=== PATIENT | male | born 1935 | race African-American/Black ===

== ENCOUNTER 2017-08-16 16:11 | Inpatient (IN) | payer MEDICARE, MEDICAID ==
[~2017-08-16] VITALS: Ht 172.7 cm; Wt 97.5 kg
[~2017-08-16 16:11] MED LIST: ACET1TAB14 PO; CALC667C4 PO; COR6 PO; NIFE90TA2 PO
[2017-08-16 20:26] LABS: HEMATOCRIT. 38.1 % (42.0-52.0); HEMOGLOBIN. 13.2 g/dL (14.0-18.0); INR 1.1; MEAN CORPUSCULAR HEMOGLOBIN 30.7 pg (28.0-32.0); MEAN CORPUSCULAR VOLUME 88.9 fL (80.0-94.0); MEAN PLATELET VOLUME 9.6 fl (7.4-10.4); PLATELET 131 x1000/uL (130-400); PROTHROMBIN TIME 11.9 sec (9.4-11.6); RED BLOOD CELL COUNT 4.28 mill/uL (4.7-6.1); RED CELL DISTRIBUTION WIDTH 15.2 % (11.6-14.6)
[2017-08-16 20:32] LABS: CARBON DIOXIDE 31 mEq/L (21-32); CHLORIDE 93 mEq/L (98-107)
[2017-08-16 20:39] LABS: CREATINE KINASE 85 IU/L (39-308); ETHANOL BLOOD < 10 mg/dL; TROPONIN I 0.17 ng/mL (0.00-0.04)
[2017-08-16 20:48] LABS: PLATELET ESTIMATE NORMAL
[2017-08-16] MEDS ORDERED: ONDANSETRON HCL 4MG/2ML VIAL IV ONE (21:15)
[2017-08-16] MEDS ORDERED: MORPHINE SULFATE 4 MG/ML CPJ (NOT FOR IM USE) IV ONE (21:15)
[2017-08-17] MEDS ORDERED: CLONIDINE 0.1MG TABLET PO PRN (08:45)
[2017-08-17] MEDS ORDERED: IPRATROPIUM/ALBUTEROL 0.5-3(2.5)MG/3ML NEB INH PRN (08:45)
[2017-08-17] MEDS ORDERED: ACETAMINOPHEN 650MG/20.3ML UDC GT PRN (08:45)
[2017-08-17] MEDS ORDERED: ACETAMINOPHEN 650MG SUPP PR PRN (08:45)
[2017-08-17] MEDS ORDERED: MAGNESIUM/ALUMINUM HYDROXIDE/SIMETHICONE 30ML UDC PO PRN (08:45)
[2017-08-17] MEDS ORDERED: MORPHINE SULFATE 4 MG/ML CPJ (NOT FOR IM USE) IV PRN (08:45)
[2017-08-17] MEDS ORDERED: NA PHOS,M-B/NA PHOS,DI-BA ENEMA 118ML PR PRN (08:45)
[2017-08-17] MEDS ORDERED: HYDROCODONE/ACETAMINOPHEN 5/325MG TABLET PO PRN (08:45)
[2017-08-17] MEDS ORDERED: ACETAMINOPHEN 325MG TABLET PO PRN (08:45)
[2017-08-17] MEDS ORDERED: GUAIFENESIN 200MG/10ML SUGAR FREE UDC PO PRN (08:45)
[2017-08-17] MEDS ORDERED: ONDANSETRON HCL 4MG/2ML VIAL IV PRN (08:45)
[2017-08-17] MEDS ORDERED: DIPHENHYDRAMINE 50MG/ML VIAL IV PRN (08:45)
[2017-08-17 09:21] LABS: HEMATOCRIT. 37.7 % (42.0-52.0); HEMOGLOBIN. 12.6 g/dL (14.0-18.0); MEAN CORPUSCULAR HEMOGLOBIN 29.8 pg (28.0-32.0); MEAN CORPUSCULAR VOLUME 89.7 fL (80.0-94.0); MEAN PLATELET VOLUME 8.7 fl (7.4-10.4); PLATELET 135 x1000/uL (130-400); RED BLOOD CELL COUNT 4.21 mill/uL (4.7-6.1); RED CELL DISTRIBUTION WIDTH 15.2 % (11.6-14.6)
[2017-08-17 09:27] LABS: CHLORIDE 94 mEq/L (98-107)
[2017-08-17 09:38] LABS: CARBON DIOXIDE 31 mEq/L (21-32)
[2017-08-17 10:15] LABS: PLATELET ESTIMATE NORMAL
[2017-08-17 12:45] VITALS: BP 125/65
[2017-08-17] MEDS: CELECOXIB 100MG CAPSULE PO SCH ×2 (14:07→19:06)
[2017-08-17] MEDS: SODIUM CHLORIDE 0.9% INJ 3ML FLUSH IVF SCH ×2 (14:10→20:51)
[2017-08-17 15:22] VITALS: BP 125/65
[2017-08-17 16:56] VITALS: BP 111/61
[2017-08-17 20:00] VITALS: BP 129/73
[2017-08-17] MEDS: FAMOTIDINE 20MG TABLET PO SCH (20:48)
[2017-08-18] VITALS (7 sets, daily range): BP systolic 101–140; BP diastolic 59–88
[2017-08-18 07:28] LABS: HEMATOCRIT. 36.8 % (42.0-52.0); HEMOGLOBIN. 12.3 g/dL (14.0-18.0); MEAN CORPUSCULAR HEMOGLOBIN 30.1 pg (28.0-32.0); MEAN CORPUSCULAR VOLUME 90.4 fL (80.0-94.0); MEAN PLATELET VOLUME 9.2 fl (7.4-10.4); PLATELET 147 x1000/uL (130-400); RED BLOOD CELL COUNT 4.07 mill/uL (4.7-6.1); RED CELL DISTRIBUTION WIDTH 15.3 % (11.6-14.6)
[2017-08-18] MEDS: CELECOXIB 100MG CAPSULE PO SCH ×2 (08:34→20:39)
[2017-08-18 12:28] LABS: PLATELET ESTIMATE NORMAL
[2017-08-18] MEDS: SODIUM CHLORIDE 0.9% INJ 3ML FLUSH IVF SCH ×2 (13:32→20:39)
[2017-08-18] MEDS: FAMOTIDINE 20MG TABLET PO SCH (20:39)
[2017-08-19] VITALS: BP 117/69
== END 2017-08-19 00:55 | DRG 551 ==
LOC: ER 16:23 → 6WST 08-17 01:01 → EDBEDREQ 08-17 01:06 → EDBEDREQTM 08-17 01:06 → ENRESERV 08-17 08:13
PROVIDERS: ADMIT Family Medicine; ATTEND Family Medicine
DX: M48.05 Spinal stenosis, thoracolumbar region (principal); N18.6 End stage renal disease; I13.2 Hypertensive heart and chronic kidney disease with heart failure and with stage 5 chronic kidney disease, or end stage renal disease; I69.351 Hemiplegia and hemiparesis following cerebral infarction affecting right dominant side; D63.8 Anemia in other chronic diseases classified elsewhere; I25.10 Atherosclerotic heart disease of native coronary artery without angina pectoris; I50.9 Heart failure, unspecified; Z99.2 Dependence on renal dialysis; Z86.718 Personal history of other venous thrombosis and embolism; Z79.899 Other long term (current) drug therapy; Z95.5 Presence of coronary angioplasty implant and graft
CPT/HCPCS: 36415; 70450; 71010; 72128; 72131; 73560; 80048; 80053; 82550; 83880; 84443; 84484; 85025; 85610; 93005; 96374; 96375; 97162; 97166; 97530; 99285; G0482; J1200; J2270; J2405

== ENCOUNTER 2017-08-19 01:16 | Inpatient (IN) | payer MEDICARE, MEDICAID ==
[~2017-08-19] VITALS: Ht 172.7 cm; Wt 97.5 kg
[2017-08-19 01:00] VITALS: BP 140/81
[2017-08-19 01:30] VITALS: BP 140/81
[2017-08-19] MEDS ORDERED: HYDROCODONE/ACETAMINOPHEN 5/325MG TABLET PO PRN (01:30)
[2017-08-19] MEDS ORDERED: ACETAMINOPHEN 650MG/20.3ML UDC PO PRN (01:30)
[2017-08-19] MEDS ORDERED: NA PHOS,M-B/NA PHOS,DI-BA ENEMA 118ML PR PRN (01:30)
[2017-08-19] MEDS ORDERED: ONDANSETRON HCL 4MG/2ML VIAL IV PRN (01:30)
[2017-08-19] MEDS ORDERED: DIPHENHYDRAMINE 50MG/ML VIAL IV PRN (01:30)
[2017-08-19] MEDS ORDERED: ACETAMINOPHEN 325MG TABLET PO PRN (01:30)
[2017-08-19] MEDS ORDERED: ACETAMINOPHEN 650MG SUPP PR PRN (01:30)
[2017-08-19] MEDS ORDERED: GUAIFENESIN 200MG/10ML SUGAR FREE UDC PO PRN (01:30)
[2017-08-19] MEDS ORDERED: MORPHINE SULFATE 2 MG/ML CPJ (NOT FOR IM USE) IV PRN (01:30)
[2017-08-19] MEDS ORDERED: MAGNESIUM/ALUMINUM HYDROXIDE/SIMETHICONE 30ML UDC PO PRN (01:30)
[2017-08-19] MEDS: SODIUM CHLORIDE 0.9% INJ 3ML FLUSH IVF SCH ×3 (06:20→21:26)
[2017-08-19 08:00] VITALS: BP 148/84
[2017-08-19] MEDS: CELECOXIB 100MG CAPSULE PO SCH ×2 (08:30→17:22)
[2017-08-19 20:00] VITALS: BP 159/82
[2017-08-19] MEDS: FAMOTIDINE 20MG TABLET PO SCH (20:38)
[2017-08-20] MEDS: SODIUM CHLORIDE 0.9% INJ 3ML FLUSH IVF SCH ×3 (05:26→21:38)
[2017-08-20 08:00] VITALS: BP 139/86
[2017-08-20] MEDS: CELECOXIB 100MG CAPSULE PO SCH ×2 (08:02→16:06)
[2017-08-20 20:00] VITALS: BP 165/93
[2017-08-20] MEDS: FAMOTIDINE 20MG TABLET PO SCH (20:15)
[2017-08-20] MEDS: CLONIDINE 0.1MG TABLET PO PRN (20:15)
[2017-08-20 21:38] VITALS: BP 150/84
[2017-08-20] MEDS: ZOLPIDEM TARTRATE 5MG TABLET PO PRN (21:38)
[2017-08-21] MEDS: SODIUM CHLORIDE 0.9% INJ 3ML FLUSH IVF SCH ×3 (06:00→22:00)
[2017-08-21 07:00] VITALS: BP 158/87
[2017-08-21] MEDS: CELECOXIB 100MG CAPSULE PO SCH ×2 (08:41→16:44)
[2017-08-21] MEDS: IPRATROPIUM/ALBUTEROL 0.5-3(2.5)MG/3ML NEB HHN PRN (15:26)
[2017-08-21 19:00] VITALS: BP 121/71
[2017-08-21] MEDS: FAMOTIDINE 20MG TABLET PO SCH (22:09)
[2017-08-21] MEDS: ZOLPIDEM TARTRATE 5MG TABLET PO PRN (22:45)
[2017-08-21] MEDS: CLONIDINE 0.1MG TABLET PO PRN (22:45)
[2017-08-22] MEDS: SODIUM CHLORIDE 0.9% INJ 3ML FLUSH IVF SCH ×3 (06:00→21:34)
[2017-08-22 08:00] VITALS: BP 113/82
[2017-08-22] MEDS: CELECOXIB 100MG CAPSULE PO SCH ×2 (09:14→18:11)
[2017-08-22] MEDS: IPRATROPIUM/ALBUTEROL 0.5-3(2.5)MG/3ML NEB HHN PRN ×2 (15:45→22:13)
[2017-08-22 20:00] VITALS: BP 121/75
[2017-08-22] MEDS: FAMOTIDINE 20MG TABLET PO SCH (21:34)
[2017-08-23] MEDS: ZOLPIDEM TARTRATE 5MG TABLET PO PRN (00:42)
[2017-08-23] MEDS: IPRATROPIUM/ALBUTEROL 0.5-3(2.5)MG/3ML NEB HHN PRN ×2 (05:05→14:25)
[2017-08-23] MEDS: SODIUM CHLORIDE 0.9% INJ 3ML FLUSH IVF SCH ×3 (06:00→22:00)
[2017-08-23 06:23] LABS: BASOPHILS % 0.5 % (0.0-2.0); EOSINOPHILS % 5.3 % (0.0-5.0); HEMATOCRIT. 32.3 % (42.0-52.0); HEMOGLOBIN. 10.9 g/dL (14.0-18.0); LYMPHOCYTES % 19.6 % (20.0-50.0); MEAN CORPUSCULAR HEMOGLOBIN 30.1 pg (28.0-32.0); MEAN CORPUSCULAR VOLUME 89.1 fL (80.0-94.0); MEAN PLATELET VOLUME 8.4 fl (7.4-10.4); MONOCYTES % 13.5 % (2.0-8.0); NEUTROPHILS % 61.1 % (40.0-76.0); PLATELET 179 x1000/uL (130-400); RED BLOOD CELL COUNT 3.62 mill/uL (4.7-6.1); RED CELL DISTRIBUTION WIDTH 15.2 % (11.6-14.6)
[2017-08-23 08:00] VITALS: BP 150/87
[2017-08-23] MEDS: CELECOXIB 100MG CAPSULE PO SCH ×2 (09:51→17:59)
[2017-08-23 20:00] VITALS: BP 149/84
[2017-08-23] MEDS: FAMOTIDINE 20MG TABLET PO SCH (20:47)
[2017-08-23] MEDS: BUDESONIDE 0.5MG/2ML NEB HHN SCH (21:44)
[2017-08-23] MEDS: IPRATROPIUM/ALBUTEROL 0.5-3(2.5)MG/3ML NEB HHN SCH (21:45)
[2017-08-24] MEDS: ZOLPIDEM TARTRATE 5MG TABLET PO PRN ×2 (00:58→23:28)
[2017-08-24] MEDS: SODIUM CHLORIDE 0.9% INJ 3ML FLUSH IVF SCH ×4 (06:00→21:33)
[2017-08-24] MEDS: BUDESONIDE 0.5MG/2ML NEB HHN SCH ×2 (07:53→21:09)
[2017-08-24] MEDS: IPRATROPIUM/ALBUTEROL 0.5-3(2.5)MG/3ML NEB HHN SCH ×3 (07:56→21:09)
[2017-08-24 07:57] VITALS: BP 146/87
[2017-08-24] MEDS: CELECOXIB 100MG CAPSULE PO SCH ×2 (08:29→17:07)
[2017-08-24 20:00] VITALS: BP 153/84
[2017-08-24] MEDS: FAMOTIDINE 20MG TABLET PO SCH (21:25)
[2017-08-25] MEDS: IPRATROPIUM/ALBUTEROL 0.5-3(2.5)MG/3ML NEB HHN SCH ×4 (00:57→20:22)
[2017-08-25 08:00] VITALS: BP 143/75
[2017-08-25] MEDS: CELECOXIB 100MG CAPSULE PO SCH ×2 (09:10→16:05)
[2017-08-25] MEDS: SODIUM CHLORIDE 0.9% INJ 3ML FLUSH IVF SCH ×2 (13:48→21:23)
[2017-08-25 20:00] VITALS: BP 156/88
[2017-08-25] MEDS: BUDESONIDE 0.5MG/2ML NEB HHN SCH (20:22)
[2017-08-25 22:30] VITALS: BP 114/58
[2017-08-25] MEDS: FAMOTIDINE 20MG TABLET PO SCH (23:29)
[2017-08-26] MEDS: ZOLPIDEM TARTRATE 5MG TABLET PO PRN (00:19)
[2017-08-26] MEDS: IPRATROPIUM/ALBUTEROL 0.5-3(2.5)MG/3ML NEB HHN SCH ×2 (01:33→09:04)
[2017-08-26] MEDS: SODIUM CHLORIDE 0.9% INJ 3ML FLUSH IVF SCH (06:00)
[2017-08-26 07:00] VITALS: BP 148/84
[2017-08-26] MEDS: CELECOXIB 100MG CAPSULE PO SCH (08:17)
[2017-08-26] MEDS: BUDESONIDE 0.5MG/2ML NEB HHN SCH (09:02)
[2017-08-26 12:38] VITALS: BP 158/90
[2017-08-26 12:46] VITALS: BP 158/90
== END 2017-08-26 14:00 | disposition home health service (06) | DRG 551 ==
PROVIDERS: ADMIT Psychiatry & Neurology Neurology; ATTEND Family Medicine
DX: M48.04 Spinal stenosis, thoracic region (principal); N18.6 End stage renal disease; I13.2 Hypertensive heart and chronic kidney disease with heart failure and with stage 5 chronic kidney disease, or end stage renal disease; G62.9 Polyneuropathy, unspecified; I69.351 Hemiplegia and hemiparesis following cerebral infarction affecting right dominant side; B02.29 Other postherpetic nervous system involvement; J44.9 Chronic obstructive pulmonary disease, unspecified; D63.8 Anemia in other chronic diseases classified elsewhere; I50.9 Heart failure, unspecified; E03.9 Hypothyroidism, unspecified; I25.10 Atherosclerotic heart disease of native coronary artery without angina pectoris; M81.0 Age-related osteoporosis without current pathological fracture; L29.8 Other pruritus; M17.10 Unilateral primary osteoarthritis, unspecified knee; M47.894 Other spondylosis, thoracic region; K59.00 Constipation, unspecified; Z82.3 Family history of stroke; Z82.49 Family history of ischemic heart disease and other diseases of the circulatory system; Z86.19 Personal history of other infectious and parasitic diseases; Z99.2 Dependence on renal dialysis; Z95.810 Presence of automatic (implantable) cardiac defibrillator; Z95.5 Presence of coronary angioplasty implant and graft; Z86.718 Personal history of other venous thrombosis and embolism; Z79.899 Other long term (current) drug therapy
CPT/HCPCS: 36415; 80048; 85025; 93970; 94640; 94664; 97110; 97116; 97162; 97166; 97530; 97535; J7030; J7620; J7626

== ENCOUNTER → 2017-10-24 | Outpatient (CLI) | payer MEDICARE, MEDICAID | END | disposition home or self-care (01) | LOC: RAD 09:22 | PROVIDERS: ATTEND Internal Medicine Nephrology | DX: M17.0 Bilateral primary osteoarthritis of knee (principal) | CPT/HCPCS: 73560 ==

== ENCOUNTER 2018-04-26 10:37 | Emergency (ER) | payer MEDICARE, MEDICAID ==
[~2018-04-26] VITALS: Ht 198.1 cm; Wt 94.0 kg
[~2018-04-26 10:37] MED LIST changes: -ACET1TAB14 PO; +AMLO5TAB88 PO; +ASPI-1159 PO; +ATOR20TA PO; -CALC667C4 PO; +CALC667T2 PO; -COR6 PO; +DIPH25CA6 PO; +NIFE10CA PO; -NIFE90TA2 PO; +SACU1TAB MT; +SENN-101 PO; +ZOLP10TA2 PO
[2018-04-26 11:01] VITALS: BP 147/101
== END 2018-04-26 12:10 | disposition left against medical advice (07) ==
LOC: ER 11:16
DX: R47.81 Slurred speech (principal); R94.31 Abnormal electrocardiogram [ECG] [EKG]; I12.0 Hypertensive chronic kidney disease with stage 5 chronic kidney disease or end stage renal disease; N18.6 End stage renal disease; Z99.2 Dependence on renal dialysis; Z95.2 Presence of prosthetic heart valve
CPT/HCPCS: 71045; 93005; 99284

== ENCOUNTER 2018-04-28 10:01 | Inpatient (IN) | payer MEDICARE, MEDICAID ==
[~2018-04-28] VITALS: Ht 325.1 cm; Wt 98.4 kg
[2018-04-28 10:40] LABS: BASOPHILS % 0.6 % (0.0-2.0); EOSINOPHILS % 4.6 % (0.0-5.0); HEMOGLOBIN. 9.6 g/dL (14.0-18.0); LYMPHOCYTES % 9.9 % (20.0-50.0); MEAN CORPUSCULAR HEMOGLOBIN 29.4 pg (28.0-32.0); MEAN CORPUSCULAR VOLUME 88.7 fL (80.0-94.0); MEAN PLATELET VOLUME 8.7 fl (7.4-10.4); MONOCYTES % 8.5 % (2.0-8.0); NEUTROPHILS % 76.4 % (40.0-76.0); PLATELET 177 x1000/uL (130-400); RED BLOOD CELL COUNT 3.27 mill/uL (4.7-6.1); RED CELL DISTRIBUTION WIDTH 15.9 % (11.6-14.6)
[2018-04-28 10:41] LABS: BG BASE EXCESS -12.2 mmol/L (-2.0-2.0); BG CARBOXYHEMOGLOBIN 0.1 % (0.5-1.5); BG DEOXYHEMOGLOBIN 8.1 % (0.0-5.0); BG FRACTION INSPIRED OXYGEN 21; BG HCO3 ACT 13.5 mmol/L (22.0-26.0); BG OXYGEN SATURATION 91.9 % (92.0-98.5); BG OXYHEMOGLOBIN 91.8 % (94.0-97.0); BG PCO2 30.6 mmHg (35.0-45.0); BG PH 7.264 (7.350-7.450); BG PO2 79.4 mmHg (75.0-100.0); BG SAMPLE SITE RIGHT BRACHIAL; BG TOTAL HEMOGLOBIN 10.4 g/dL (12.0-18.0); BG VENT MODE ROOM AIR
[2018-04-28 10:47] LABS: CHLORIDE 98 mEq/L (98-107)
[2018-04-28 10:49] LABS: INR 1.2; PARTIAL THROMBOPLASTIN TIME 36.2 sec (23.4-31.0); PROTHROMBIN TIME 12.3 sec (9.4-11.6)
[2018-04-28 11:02] LABS: PHOSPHORUS 9.1 mg/dL (2.5-4.9)
[2018-04-28] MEDS ORDERED: SODIUM BICARBONATE 8.4% 1 MEQ/ML 50ML SYR IV ONE (11:15)
[2018-04-28] MEDS ORDERED: INSULIN REGULAR (HUMULIN R) 300UNITS/3ML IV ONE (11:15)
[2018-04-28] MEDS ORDERED: CALCIUM CHLORIDE 1GM/10ML SYR IV ONE (11:15)
[2018-04-28] MEDS ORDERED: DEXTROSE 50% WATER 50ML SYRINGE IV ONE (11:15)
[2018-04-28] MEDS ORDERED: TRAMADOL 50MG TABLET PO ONE (12:00)
[2018-04-28] MEDS: SEVELAMER CARBONATE 800 MG TABLET PO SCH ×2 (14:00→17:50)
[2018-04-28 14:30] VITALS: BP 151/87
[2018-04-28] MEDS ORDERED: MORPHINE SULFATE 4 MG/ML CPJ (NOT FOR IM USE) IV PRN (15:00)
[2018-04-28] MEDS ORDERED: IPRATROPIUM/ALBUTEROL 0.5-3(2.5)MG/3ML NEB INH PRN (15:00)
[2018-04-28] MEDS ORDERED: ACETAMINOPHEN 650MG SUPP PR PRN (15:00)
[2018-04-28] MEDS ORDERED: ACETAMINOPHEN 325MG TABLET PO PRN (15:00)
[2018-04-28] MEDS ORDERED: ONDANSETRON HCL 4MG/2ML VIAL IV PRN (15:00)
[2018-04-28] MEDS ORDERED: CLONIDINE 0.1MG TABLET PO PRN (15:00)
[2018-04-28] MEDS ORDERED: MAGNESIUM/ALUMINUM HYDROXIDE/SIMETHICONE 30ML UDC PO PRN (15:00)
[2018-04-28] MEDS ORDERED: HYDROCODONE/APAP 7.5/325MG 1 TAB TABLET PO PRN (15:00)
[2018-04-28] MEDS ORDERED: ACETAMINOPHEN 650MG/20.3ML UDC GT PRN (15:00)
[2018-04-28 17:00] VITALS: BP 151/87
[2018-04-28 20:00] VITALS: BP 119/73
[2018-04-28] MEDS ORDERED: EPOETIN ALFA 4000UNITS/ML VIAL SUBCUT SCH (21:00)
[2018-04-28] MEDS: ATORVASTATIN CALCIUM 20MG TABLET PO SCH (21:19)
[2018-04-28] MEDS: SODIUM CHLORIDE 0.9% INJ 3ML FLUSH IVF SCH (21:20)
[2018-04-28 22:13] LABS: CREATINE KINASE MB FRACTION 7.5 ng/mL (0.5-3.6)
[2018-04-28] MEDS: DIPHENHYDRAMINE 50MG/ML VIAL IV PRN (22:25)
[2018-04-28] MEDS: HYDROCODONE/ACETAMINOPHEN 5/325MG TABLET PO PRN (22:25)
[2018-04-29] VITALS: BP 109/51
[2018-04-29 04:00] VITALS: BP 119/74
[2018-04-29] MEDS: HYDROCODONE/ACETAMINOPHEN 5/325MG TABLET PO PRN (04:02)
[2018-04-29] MEDS: SODIUM CHLORIDE 0.9% INJ 3ML FLUSH IVF SCH ×3 (05:53→20:43)
[2018-04-29 07:25] LABS: BASOPHILS % 1.2 % (0.0-2.0); EOSINOPHILS % 8.1 % (0.0-5.0); HEMATOCRIT. 27.7 % (42.0-52.0); HEMOGLOBIN. 9.4 g/dL (14.0-18.0); LYMPHOCYTES % 8.1 % (20.0-50.0); MEAN PLATELET VOLUME 9.4 fl (7.4-10.4); MONOCYTES % 10.4 % (2.0-8.0); NEUTROPHILS % 72.2 % (40.0-76.0); PLATELET 160 x1000/uL (130-400); RED BLOOD CELL COUNT 3.14 mill/uL (4.7-6.1); RED CELL DISTRIBUTION WIDTH 15.9 % (11.6-14.6)
[2018-04-29 08:00] VITALS: BP 112/72
[2018-04-29 08:11] LABS: CHLORIDE 95 mEq/L (98-107)
[2018-04-29 08:39] LABS: LDL CHOLESTEROL 88 mg/dL (5-100)
[2018-04-29 08:40] LABS: CREATINE KINASE 204 IU/L (39-308); HDL CHOLESTEROL 37 mg/dL (40-59)
[2018-04-29] MEDS: AMLODIPINE 5MG TABLET PO SCH (09:45)
[2018-04-29] MEDS: CALCIUM ACETATE 667MG CAPSULE PO SCH ×3 (09:45→17:50)
[2018-04-29] MEDS: SEVELAMER CARBONATE 800 MG TABLET PO SCH ×3 (09:45→17:50)
[2018-04-29] MEDS: ASPIRIN 81MG TABLET PO SCH (09:46)
[2018-04-29 12:00] VITALS: BP 104/51
[2018-04-29] MEDS: DIPHENHYDRAMINE 50MG/ML VIAL IV PRN (15:54)
[2018-04-29 16:00] VITALS: BP 130/83
[2018-04-29 20:11] VITALS: BP 99/40
[2018-04-29] MEDS: ATORVASTATIN CALCIUM 20MG TABLET PO SCH (20:43)
[2018-04-30] VITALS: BP 90/47
[2018-04-30] MEDS: SODIUM CHLORIDE 0.9% INJ 3ML FLUSH IVF SCH ×2 (06:00→14:19)
[2018-04-30 08:00] VITALS: BP 125/74
[2018-04-30] MEDS: CALCIUM ACETATE 667MG CAPSULE PO SCH ×2 (09:09→13:02)
[2018-04-30] MEDS: SEVELAMER CARBONATE 800 MG TABLET PO SCH ×2 (09:09→13:02)
[2018-04-30] MEDS: AMLODIPINE 5MG TABLET PO SCH (09:10)
[2018-04-30] MEDS: ASPIRIN 81MG TABLET PO SCH (09:10)
[2018-04-30] MEDS ORDERED: HYDROCODONE/APAP 7.5/325MG 1 TAB TABLET PO PRN (11:00)
[2018-04-30 12:00] VITALS: BP 117/78
[2018-04-30 15:30] VITALS: BP 117/78
[2018-05-01] MEDS ORDERED: EPOETIN ALFA 10000UNITS/ML VIAL SUBCUT SCH (21:00)
== END 2018-04-30 16:05 | disposition home or self-care (01) | DRG 291 ==
LOC: EDBEDREQ 10:18 → ER 10:39 → 6WST 10:56 → EDBEDREQ 10:59 → ENRESERV 13:02
PROVIDERS: ADMIT Family Medicine; ATTEND Family Medicine
PROC: 5A1D70Z Performance of Urinary Filtration, Intermittent, Less than 6 Hours Per Day (ICD-10-PCS; principal; 2018-04-28)
PROC: 5A1D70Z Performance of Urinary Filtration, Intermittent, Less than 6 Hours Per Day (ICD-10-PCS; 2018-04-29)
PROC: 5A1D70Z Performance of Urinary Filtration, Intermittent, Less than 6 Hours Per Day (ICD-10-PCS; 2018-04-30)
DX: I13.2 Hypertensive heart and chronic kidney disease with heart failure and with stage 5 chronic kidney disease, or end stage renal disease (principal); E43 Unspecified severe protein-calorie malnutrition; N18.6 End stage renal disease; I50.23 Acute on chronic systolic (congestive) heart failure; E87.2 Acidosis; I47.2 Ventricular tachycardia; I69.351 Hemiplegia and hemiparesis following cerebral infarction affecting right dominant side; N17.9 Acute kidney failure, unspecified; E87.5 Hyperkalemia; Z99.2 Dependence on renal dialysis; Z91.15 Patient's noncompliance with renal dialysis; E83.39 Other disorders of phosphorus metabolism; D64.9 Anemia, unspecified; D63.8 Anemia in other chronic diseases classified elsewhere; E11.22 Type 2 diabetes mellitus with diabetic chronic kidney disease; E78.00 Pure hypercholesterolemia, unspecified; E78.5 Hyperlipidemia, unspecified; G25.3 Myoclonus; G89.29 Other chronic pain; M54.9 Dorsalgia, unspecified; I25.10 Atherosclerotic heart disease of native coronary artery without angina pectoris; I35.0 Nonrheumatic aortic (valve) stenosis; I42.0 Dilated cardiomyopathy; M47.9 Spondylosis, unspecified; Z86.718 Personal history of other venous thrombosis and embolism; Z91.19 Patient's noncompliance with other medical treatment and regimen; Z95.5 Presence of coronary angioplasty implant and graft; Z95.810 Presence of automatic (implantable) cardiac defibrillator
CPT/HCPCS: 36415; 36600; 71045; 80048; 80053; 80061; 82375; 82550; 82553; 82805; 83735; 84100; 84484; 85025; 85610; 85730; 93005; J0885; J1200; J1815; J3490; J7030

== ENCOUNTER 2018-05-16 14:06 | Inpatient (IN) | payer MEDICARE, MEDICAID ==
[~2018-05-16] VITALS: Ht 172.7 cm; Wt 93.4 kg
[2018-05-16 16:55] LABS: HEMATOCRIT. 30.3 % (42.0-52.0); HEMOGLOBIN. 9.9 g/dL (14.0-18.0); MEAN CORPUSCULAR HEMOGLOBIN 28.9 pg (28.0-32.0); MEAN CORPUSCULAR VOLUME 88.5 fL (80.0-94.0); MEAN PLATELET VOLUME 8.6 fl (7.4-10.4); PLATELET 223 x1000/uL (130-400); RED BLOOD CELL COUNT 3.42 mill/uL (4.7-6.1); RED CELL DISTRIBUTION WIDTH 16.5 % (11.6-14.6)
[2018-05-16 16:59] LABS: CHLORIDE 96 mEq/L (98-107)
[2018-05-16 17:04] LABS: INR 1.2; PROTHROMBIN TIME 12.7 sec (9.4-11.6)
[2018-05-16 17:31] LABS: PLATELET ESTIMATE NORMAL
[2018-05-16] MEDS ORDERED: VANCOMYCIN 1 G PREMIX 200 ML IV SCH (23:15)
[2018-05-16 23:32] LABS: HEMOGLOBIN. 10.4 g/dL (14.0-18.0); MEAN CORPUSCULAR HEMOGLOBIN 29.1 pg (28.0-32.0); MEAN CORPUSCULAR VOLUME 89.6 fL (80.0-94.0); MEAN PLATELET VOLUME 8.7 fl (7.4-10.4); PLATELET 290 x1000/uL (130-400); RED BLOOD CELL COUNT 3.58 mill/uL (4.7-6.1); RED CELL DISTRIBUTION WIDTH 16.7 % (11.6-14.6)
[2018-05-16 23:35] LABS: CHLORIDE 93 mEq/L (98-107)
[2018-05-16 23:37] LABS: INR 1.2; PROTHROMBIN TIME 12.7 sec (9.4-11.6)
[2018-05-17] MEDS ORDERED: ACETAMINOPHEN 325MG TABLET PO ONE (00:15)
[2018-05-17] MEDS ORDERED: ASPIRIN 325MG EC TABLET PO ONE (00:30)
[2018-05-17 01:29] LABS: PLATELET ESTIMATE NORMAL
[2018-05-17] MEDS ORDERED: ACETAMINOPHEN 325MG TABLET PO PRN (01:45)
[2018-05-17] MEDS ORDERED: PIPERACILLIN/TAZ 3.375G PREMIX 50 ML IV SCH ×2 (01:45→06:30)
[2018-05-17] MEDS ORDERED: ONDANSETRON HCL 4MG/2ML VIAL IV PRN ×2 (01:45→06:30)
[2018-05-17] MEDS ORDERED: GUAIFENESIN 200MG/10ML SUGAR FREE UDC PO PRN ×2 (01:45→06:30)
[2018-05-17] MEDS ORDERED: ENOXAPARIN 40MG/0.4ML SYR SUBCUT SCH ×2 (01:45→06:30)
[2018-05-17] MEDS ORDERED: CLONIDINE 0.1MG TABLET PO PRN ×2 (01:45→06:30)
[2018-05-17] MEDS ORDERED: DOCUSATE SODIUM 100MG CAPSULE PO PRN (01:45)
[2018-05-17 08:00] VITALS: BP 90/52
[2018-05-17] MEDS ORDERED: AMLODIPINE 10MG TABLET PO SCH (09:00)
[2018-05-17] MEDS ORDERED: ASPIRIN 81MG EC TABLET PO SCH (09:00)
[2018-05-17] MEDS: AMLODIPINE 10MG TABLET PO SCH (09:00)
[2018-05-17] MEDS ORDERED: LOPERAMIDE HCL 2MG CAPSULE PO PRN (09:30)
[2018-05-17] MEDS: PIPERACILLIN/TAZ 2.25G PREMIX 50 ML IV SCH ×2 (10:31→15:58)
[2018-05-17] MEDS: ENOXAPARIN 30MG/0.3ML SYR SUBCUT SCH (10:32)
[2018-05-17] MEDS: ASPIRIN 81MG EC TABLET PO SCH (10:32)
[2018-05-17] MEDS ORDERED: VANCOMYCIN 1 G PREMIX 200 ML IV NR (11:00)
[2018-05-17 12:00] VITALS: BP 92/57
[2018-05-17 16:00] VITALS: BP 99/58
[2018-05-17] MEDS: HYDROCODONE/ACETAMINOPHEN 5/325MG TABLET PO PRN (17:55)
[2018-05-17 20:00] VITALS: BP 91/54
[2018-05-17 21:14] VITALS: BP 100/60
[2018-05-17 23:34] VITALS: BP 99/62
[2018-05-18] VITALS: BP 110/62
[2018-05-18] MEDS: PIPERACILLIN/TAZ 2.25G PREMIX 50 ML IV SCH ×3 (00:32→16:00)
[2018-05-18] MEDS: HYDROCODONE/ACETAMINOPHEN 5/325MG TABLET PO PRN ×3 (03:36→21:27)
[2018-05-18 04:00] VITALS: BP 97/61
[2018-05-18 07:23] LABS: HEMATOCRIT. 28.2 % (42.0-52.0); HEMOGLOBIN. 9.2 g/dL (14.0-18.0); MEAN CORPUSCULAR HEMOGLOBIN 28.9 pg (28.0-32.0); MEAN CORPUSCULAR VOLUME 88.4 fL (80.0-94.0); MEAN PLATELET VOLUME 9.2 fl (7.4-10.4); PLATELET 244 x1000/uL (130-400); RED BLOOD CELL COUNT 3.19 mill/uL (4.7-6.1)
[2018-05-18 08:00] VITALS: BP 116/76
[2018-05-18] MEDS: ASPIRIN 81MG EC TABLET PO SCH (08:52)
[2018-05-18] MEDS: AMLODIPINE 10MG TABLET PO SCH (08:52)
[2018-05-18] MEDS: ENOXAPARIN 30MG/0.3ML SYR SUBCUT SCH (08:53)
[2018-05-18 09:33] LABS: PLATELET ESTIMATE NORMAL
[2018-05-18] MEDS: DIPHENHYDRAMINE 25MG CAPSULE PO PRN (10:30)
[2018-05-18 12:00] VITALS: BP 102/68
[2018-05-18 16:00] VITALS: BP 103/47
[2018-05-18] MEDS: SERTRALINE HCL 25MG TABLET PO SCH (17:15)
[2018-05-18 20:00] VITALS: BP 104/64
[2018-05-18] MEDS: ENOXAPARIN 40MG/0.4ML SYR SUBCUT SCH (21:28)
[2018-05-19] VITALS: BP 98/56
[2018-05-19] MEDS: PIPERACILLIN/TAZ 2.25G PREMIX 50 ML IV SCH ×3 (00:10→15:48)
[2018-05-19 04:00] VITALS: BP 122/73
[2018-05-19] MEDS: ASPIRIN 81MG EC TABLET PO SCH (07:43)
[2018-05-19] MEDS: DOCUSATE SODIUM 100MG CAPSULE PO PRN (07:44)
[2018-05-19] MEDS: HYDROCODONE/ACETAMINOPHEN 5/325MG TABLET PO PRN ×4 (07:46→20:12)
[2018-05-19] MEDS: AMLODIPINE 10MG TABLET PO SCH (07:52)
[2018-05-19] MEDS: SERTRALINE HCL 25MG TABLET PO SCH (07:57)
[2018-05-19 08:00] VITALS: BP 111/66
[2018-05-19 08:11] LABS: HEMATOCRIT. 28.1 % (42.0-52.0); MEAN CORPUSCULAR HEMOGLOBIN 28.4 pg (28.0-32.0); MEAN CORPUSCULAR VOLUME 88.6 fL (80.0-94.0); MEAN PLATELET VOLUME 9.2 fl (7.4-10.4); PLATELET 250 x1000/uL (130-400); RED BLOOD CELL COUNT 3.17 mill/uL (4.7-6.1); RED CELL DISTRIBUTION WIDTH 17.6 % (11.6-14.6)
[2018-05-19 08:58] LABS: PLATELET ESTIMATE NORMAL
[2018-05-19 12:00] VITALS: BP 108/62
[2018-05-19] MEDS ORDERED: VANCOMYCIN 1 G PREMIX 200 ML IV SCH (14:00)
[2018-05-19] MEDS: ENOXAPARIN 40MG/0.4ML SYR SUBCUT SCH (15:51)
[2018-05-19 16:00] VITALS: BP 99/59
[2018-05-19 20:00] VITALS: BP 90/50
[2018-05-20] VITALS: BP 95/54
[2018-05-20] MEDS: PIPERACILLIN/TAZ 2.25G PREMIX 50 ML IV SCH ×3 (00:20→16:02)
[2018-05-20] MEDS: HYDROCODONE/ACETAMINOPHEN 5/325MG TABLET PO PRN (00:24)
[2018-05-20 04:00] VITALS: BP 91/64
[2018-05-20] MEDS: ACETAMINOPHEN 325MG TABLET PO PRN ×3 (05:04→21:27)
[2018-05-20] MEDS: DIPHENHYDRAMINE 25MG CAPSULE PO PRN ×2 (05:04→21:26)
[2018-05-20 08:00] VITALS: BP 93/57
[2018-05-20] MEDS: SERTRALINE HCL 25MG TABLET PO SCH (08:28)
[2018-05-20] MEDS: ASPIRIN 81MG EC TABLET PO SCH (08:28)
[2018-05-20] MEDS: AMLODIPINE 10MG TABLET PO SCH (08:33)
[2018-05-20] MEDS: CARVEDILOL 3.125 MG TABLET PO SCH ×2 (10:07→21:00)
[2018-05-20 12:00] VITALS: BP 97/61
[2018-05-20 16:00] VITALS: BP 138/115
[2018-05-20] MEDS: ENOXAPARIN 40MG/0.4ML SYR SUBCUT SCH (16:02)
[2018-05-20 20:00] VITALS: BP 92/50
[2018-05-21] VITALS: BP 94/56
[2018-05-21] MEDS: PIPERACILLIN/TAZ 2.25G PREMIX 50 ML IV SCH ×3 (00:10→17:01)
[2018-05-21 04:00] VITALS: BP 113/58
[2018-05-21 06:28] LABS: HEMATOCRIT. 26.4 % (42.0-52.0); HEMOGLOBIN. 8.6 g/dL (14.0-18.0); MEAN CORPUSCULAR HEMOGLOBIN 29.3 pg (28.0-32.0); MEAN CORPUSCULAR VOLUME 89.8 fL (80.0-94.0); PLATELET 251 x1000/uL (130-400); RED BLOOD CELL COUNT 2.94 mill/uL (4.7-6.1); RED CELL DISTRIBUTION WIDTH 17.1 % (11.6-14.6)
[2018-05-21] MEDS: SERTRALINE HCL 25MG TABLET PO SCH ×2 (09:00→09:29)
[2018-05-21] MEDS: ASPIRIN 81MG EC TABLET PO SCH (09:00)
[2018-05-21] MEDS: CARVEDILOL 3.125 MG TABLET PO SCH ×3 (09:00→22:00)
[2018-05-21] MEDS: ACETAMINOPHEN 325MG TABLET PO PRN (09:30)
[2018-05-21] MEDS: DEXT 5%/0.9% NACL 1,000 ML IV SCH (11:28)
[2018-05-21 12:00] VITALS: BP 86/47
[2018-05-21 13:04] LABS: PLATELET ESTIMATE NORMAL
[2018-05-21 16:00] VITALS: BP 92/44
[2018-05-21] MEDS ORDERED: VANCOMYCIN 1 G PREMIX 200 ML IV SCH (17:00)
[2018-05-21 20:00] VITALS: BP 140/110
[2018-05-22] VITALS (7 sets, daily range): BP systolic 87–106; BP diastolic 44–67
[2018-05-22] MEDS: DEXT 5%/0.9% NACL 1,000 ML IV SCH (00:11)
[2018-05-22] MEDS: PIPERACILLIN/TAZ 2.25G PREMIX 50 ML IV SCH ×3 (00:11→16:11)
[2018-05-22] MEDS: DIPHENHYDRAMINE 25MG CAPSULE PO PRN (02:27)
[2018-05-22 07:02] LABS: HEMOGLOBIN. 9.1 g/dL (14.0-18.0); MEAN CORPUSCULAR VOLUME 88.7 fL (80.0-94.0); MEAN PLATELET VOLUME 9.1 fl (7.4-10.4); PLATELET 273 x1000/uL (130-400); RED BLOOD CELL COUNT 3.15 mill/uL (4.7-6.1); RED CELL DISTRIBUTION WIDTH 16.9 % (11.6-14.6)
[2018-05-22] MEDS: SERTRALINE HCL 25MG TABLET PO SCH (08:34)
[2018-05-22] MEDS: CARVEDILOL 3.125 MG TABLET PO SCH ×2 (08:35→21:00)
[2018-05-22] MEDS: ASPIRIN 81MG EC TABLET PO SCH (08:35)
[2018-05-22 14:37] LABS: PLATELET ESTIMATE NORMAL
[2018-05-22] MEDS: ZOLPIDEM TARTRATE 5MG TABLET PO SCH (21:39)
[2018-05-23 04:00] VITALS: BP 112/60
[2018-05-23 05:39] LABS: HEMATOCRIT. 28.2 % (42.0-52.0); HEMOGLOBIN. 9.2 g/dL (14.0-18.0); MEAN CORPUSCULAR HEMOGLOBIN 28.7 pg (28.0-32.0); MEAN CORPUSCULAR VOLUME 88.3 fL (80.0-94.0); MEAN PLATELET VOLUME 9.2 fl (7.4-10.4); PLATELET 273 x1000/uL (130-400); RED CELL DISTRIBUTION WIDTH 16.8 % (11.6-14.6)
[2018-05-23 08:00] VITALS: BP 101/60
[2018-05-23] MEDS: ASPIRIN 81MG EC TABLET PO SCH (08:46)
[2018-05-23] MEDS: PIPERACILLIN/TAZ 2.25G PREMIX 50 ML IV SCH ×3 (08:46→16:20)
[2018-05-23] MEDS: SERTRALINE HCL 25MG TABLET PO SCH (08:47)
[2018-05-23] MEDS: CARVEDILOL 3.125 MG TABLET PO SCH ×2 (09:00→22:04)
[2018-05-23] MEDS: ACETAMINOPHEN 325MG TABLET PO PRN ×2 (11:32→22:03)
[2018-05-23 12:00] VITALS: BP 103/60
[2018-05-23 13:59] LABS: PLATELET ESTIMATE NORMAL
[2018-05-23 16:00] VITALS: BP 108/61
[2018-05-23 20:00] VITALS: BP 105/61
[2018-05-23 20:29] LABS: CHLORIDE 96 mEq/L (98-107); INR 1.3; PROTHROMBIN TIME 13.3 sec (9.4-11.6)
[2018-05-23] MEDS: ZOLPIDEM TARTRATE 5MG TABLET PO SCH (22:04)
[2018-05-23] MEDS: EPOETIN ALFA 10000UNITS/ML VIAL SUBCUT SCH (22:05)
[2018-05-24] VITALS (8 sets, daily range): BP systolic 90–158; BP diastolic 46–73
[2018-05-24] MEDS: PIPERACILLIN/TAZ 2.25G PREMIX 50 ML IV SCH ×2 (00:17→08:15)
[2018-05-24 07:17] LABS: HEMATOCRIT. 26.9 % (42.0-52.0); HEMOGLOBIN. 8.6 g/dL (14.0-18.0); MEAN CORPUSCULAR HEMOGLOBIN 28.6 pg (28.0-32.0); PLATELET 271 x1000/uL (130-400); RED BLOOD CELL COUNT 3.02 mill/uL (4.7-6.1); RED CELL DISTRIBUTION WIDTH 17.4 % (11.6-14.6)
[2018-05-24] MEDS: SERTRALINE HCL 25MG TABLET PO SCH (09:00)
[2018-05-24] MEDS: CARVEDILOL 3.125 MG TABLET PO SCH ×2 (09:00→20:46)
[2018-05-24] MEDS ORDERED: ROCURONIUM BROMIDE 10MG/ML VIAL 5ML IV ONE (09:16)
[2018-05-24] MEDS ORDERED: MIDAZOLAM HCL 2 MG/2 ML VIAL ONE (09:16)
[2018-05-24] MEDS ORDERED: FENTANYL CITRATE/PF 50MCG/ML 2ML VIAL ONE (09:16)
[2018-05-24] MEDS ORDERED: BACITRACIN 50,000 UNITS/VIAL ONE (09:20)
[2018-05-24] MEDS ORDERED: VANCOMYCIN HCL 500 MG/VIAL ONE (09:20)
[2018-05-24] MEDS ORDERED: NORMAL SALINE 0.9% 10 ML SYR ONE (09:20)
[2018-05-24] MEDS ORDERED: METOCLOPRAMIDE HCL 10MG/2ML VIAL ONE (09:30)
[2018-05-24] MEDS ORDERED: SUCCINYLCHOLINE CHLORIDE 200MG/10ML VIAL IV ONE (09:30)
[2018-05-24] MEDS ORDERED: ONDANSETRON HCL 4MG/2ML VIAL ONE (09:30)
[2018-05-24] MEDS ORDERED: ETOMIDATE 2MG/ML 10ML VIAL IV ONE (09:30)
[2018-05-24 09:32] LABS: PLATELET ESTIMATE NORMAL
[2018-05-24] MEDS ORDERED: EPHEDRINE SULFATE 50MG/ML VIAL ONE ×2 (09:51→10:52)
[2018-05-24] MEDS ORDERED: PHYSOSTIGMINE SALICYLATE ONE (09:51)
[2018-05-24] MEDS ORDERED: FENTANYL CITRATE/PF 50MCG/ML 2ML VIAL IV PRN (10:30)
[2018-05-24] MEDS ORDERED: ONDANSETRON HCL 4MG/2ML VIAL IV PRN (10:30)
[2018-05-24] MEDS ORDERED: MEPERIDINE HCL/PF 25MG/ML CPJ IV PRN (10:30)
[2018-05-24] MEDS ORDERED: HYDROMORPHONE HCL/PF 2MG/ML CPJ IV PRN (10:30)
[2018-05-24] MEDS ORDERED: BUPIVACAINE HCL/PF 0.25% (2.5MG/ML) 10ML ONE (10:36)
[2018-05-24] MEDS ORDERED: ALBUMIN HUMAN 12.5G/250ML (5%) IV ONE (11:28)
[2018-05-24] MEDS ORDERED: ALBUMIN HUMAN 12.5GM/50ML (25%) IV ONE (11:28)
[2018-05-24 12:02] LABS: HEMATOCRIT 23.2 % (42.0-52.0); HEMOGLOBIN 7.5 g/dL (14.0-18.0)
[2018-05-24] MEDS: ACETAMINOPHEN 325MG TABLET PO PRN (18:05)
[2018-05-24] MEDS ORDERED: HYDROCODONE/ACETAMINOPHEN 5/325MG TABLET PO PRN (18:15)
[2018-05-24 18:16] LABS: HEMATOCRIT 24.9 % (42.0-52.0)
[2018-05-24] MEDS: ZOLPIDEM TARTRATE 5MG TABLET PO SCH (20:46)
[2018-05-24] MEDS: MORPHINE SULFATE 4 MG/ML CPJ (NOT FOR IM USE) IV PRN (20:50)
[2018-05-25] VITALS (7 sets, daily range): BP systolic 77–137; BP diastolic 44–65
[2018-05-25] MEDS: SERTRALINE HCL 25MG TABLET PO SCH (09:06)
[2018-05-25] MEDS: CARVEDILOL 3.125 MG TABLET PO SCH ×2 (09:06→21:00)
[2018-05-25 09:34] LABS: HEMATOCRIT. 24.1 % (42.0-52.0); HEMOGLOBIN. 7.7 g/dL (14.0-18.0); MEAN CORPUSCULAR VOLUME 90.4 fL (80.0-94.0); MEAN PLATELET VOLUME 8.6 fl (7.4-10.4); PLATELET 248 x1000/uL (130-400); RED BLOOD CELL COUNT 2.66 mill/uL (4.7-6.1); RED CELL DISTRIBUTION WIDTH 16.7 % (11.6-14.6)
[2018-05-25] MEDS ORDERED: SODIUM CHLORIDE 0.9% 500 ML IV ONE (13:00)
[2018-05-25 13:02] LABS: PLATELET ESTIMATE NORMAL
[2018-05-25] MEDS: EPOETIN ALFA 10000UNITS/ML VIAL SUBCUT SCH (21:27)
[2018-05-25] MEDS: ZOLPIDEM TARTRATE 5MG TABLET PO SCH (23:38)
[2018-05-26] VITALS (11 sets, daily range): BP systolic 94–126; BP diastolic 40–94
[2018-05-26 06:35] LABS: HEMATOCRIT. 23.3 % (42.0-52.0); HEMOGLOBIN. 7.6 g/dL (14.0-18.0); MEAN CORPUSCULAR HEMOGLOBIN 29.5 pg (28.0-32.0); MEAN CORPUSCULAR VOLUME 90.6 fL (80.0-94.0); PLATELET 252 x1000/uL (130-400); RED BLOOD CELL COUNT 2.58 mill/uL (4.7-6.1); RED CELL DISTRIBUTION WIDTH 16.8 % (11.6-14.6)
[2018-05-26] MEDS: CARVEDILOL 3.125 MG TABLET PO SCH ×2 (08:35→23:06)
[2018-05-26] MEDS: SERTRALINE HCL 25MG TABLET PO SCH (08:35)
[2018-05-26] MEDS ORDERED: ONDANSETRON 4MG ODT PO PRN (10:30)
[2018-05-26 13:41] LABS: PLATELET ESTIMATE NORMAL
[2018-05-26] MEDS ORDERED: VANCOMYCIN 1 G PREMIX 200 ML IV NR (21:00)
[2018-05-26] MEDS: ZOLPIDEM TARTRATE 5MG TABLET PO SCH (23:06)
[2018-05-27] VITALS: BP 104/60
[2018-05-27 04:00] VITALS: BP 101/50
[2018-05-27] MEDS: MORPHINE SULFATE 4 MG/ML CPJ (NOT FOR IM USE) IV PRN (04:41)
[2018-05-27 06:33] LABS: HEMATOCRIT. 25.1 % (42.0-52.0); HEMOGLOBIN. 8.2 g/dL (14.0-18.0); MEAN CORPUSCULAR HEMOGLOBIN 29.1 pg (28.0-32.0); PLATELET 235 x1000/uL (130-400); RED BLOOD CELL COUNT 2.81 mill/uL (4.7-6.1); RED CELL DISTRIBUTION WIDTH 16.5 % (11.6-14.6)
[2018-05-27 08:00] VITALS: BP 105/62
[2018-05-27 10:00] LABS: NUCLEATED RED BLOOD CELLS 11 /100 WBC
[2018-05-27 10:02] LABS: PLATELET ESTIMATE NORMAL
[2018-05-27] MEDS: SERTRALINE HCL 25MG TABLET PO SCH (10:48)
[2018-05-27] MEDS: CARVEDILOL 3.125 MG TABLET PO SCH ×2 (10:49→21:17)
[2018-05-27 12:00] VITALS: BP 109/61
[2018-05-27 16:00] VITALS: BP 102/57
[2018-05-27 20:00] VITALS: BP 126/63
[2018-05-27] MEDS: ZOLPIDEM TARTRATE 5MG TABLET PO SCH (21:17)
[2018-05-28] VITALS: BP 111/63
[2018-05-28 04:00] VITALS: BP 110/63
[2018-05-28] MEDS: CARVEDILOL 3.125 MG TABLET PO SCH ×2 (09:00→20:43)
[2018-05-28] MEDS: SERTRALINE HCL 25MG TABLET PO SCH (09:00)
[2018-05-28 10:33] LABS: HEMATOCRIT. 25.3 % (42.0-52.0); HEMOGLOBIN. 8.3 g/dL (14.0-18.0); MEAN CORPUSCULAR HEMOGLOBIN 29.9 pg (28.0-32.0); MEAN CORPUSCULAR VOLUME 91.2 fL (80.0-94.0); MEAN PLATELET VOLUME 8.9 fl (7.4-10.4); PLATELET 228 x1000/uL (130-400); RED BLOOD CELL COUNT 2.77 mill/uL (4.7-6.1); RED CELL DISTRIBUTION WIDTH 16.4 % (11.6-14.6)
[2018-05-28 12:00] VITALS: BP 86/56
[2018-05-28] MEDS: DIPHENHYDRAMINE 25MG CAPSULE PO PRN (13:27)
[2018-05-28] MEDS: DOCUSATE SODIUM 100MG CAPSULE PO PRN (13:27)
[2018-05-28 13:39] LABS: PLATELET ESTIMATE NORMAL
[2018-05-28 16:00] VITALS: BP 110/68
[2018-05-28 20:00] VITALS: BP 120/63
[2018-05-28] MEDS: EPOETIN ALFA 10000UNITS/ML VIAL SUBCUT SCH (20:42)
[2018-05-28 20:56] VITALS: BP 120/63
== END 2018-05-28 23:05 | DRG 853 ==
LOC: ER 14:06 → 7WST 05-17 00:44 → EDBEDREQ 05-17 01:08 → SUPCPDRO 05-17 01:40 → ENRESERV 05-17 04:29 → ER 05-17 06:18 → 7WST 05-26 12:04
PROVIDERS: ADMIT Hospitalist; ATTEND Hospitalist
PROC: 5A1D70Z Performance of Urinary Filtration, Intermittent, Less than 6 Hours Per Day (ICD-10-PCS; 2018-05-17)
PROC: 5A1D70Z Performance of Urinary Filtration, Intermittent, Less than 6 Hours Per Day (ICD-10-PCS; 2018-05-21)
PROC: 5A1D70Z Performance of Urinary Filtration, Intermittent, Less than 6 Hours Per Day (ICD-10-PCS; 2018-05-23)
PROC: 30233N1 Transfusion of Nonautologous Red Blood Cells into Peripheral Vein, Percutaneous Approach (ICD-10-PCS; 2018-05-24)
PROC: 5A1D70Z Performance of Urinary Filtration, Intermittent, Less than 6 Hours Per Day (ICD-10-PCS; 2018-05-24)
PROC: 0Y6H0Z3 Detachment at Right Lower Leg, Low, Open Approach (ICD-10-PCS; principal; 2018-05-24 09:30)
PROC: 5A1D70Z Performance of Urinary Filtration, Intermittent, Less than 6 Hours Per Day (ICD-10-PCS; 2018-05-25)
PROC: 5A1D70Z Performance of Urinary Filtration, Intermittent, Less than 6 Hours Per Day (ICD-10-PCS; 2018-05-27)
DX: A41.9 Sepsis, unspecified organism (principal); N18.6 End stage renal disease; E43 Unspecified severe protein-calorie malnutrition; I42.0 Dilated cardiomyopathy; I50.22 Chronic systolic (congestive) heart failure; I13.2 Hypertensive heart and chronic kidney disease with heart failure and with stage 5 chronic kidney disease, or end stage renal disease; D62 Acute posthemorrhagic anemia; I70.261 Atherosclerosis of native arteries of extremities with gangrene, right leg; I47.2 Ventricular tachycardia; L97.418 Non-pressure chronic ulcer of right heel and midfoot with other specified severity; I69.351 Hemiplegia and hemiparesis following cerebral infarction affecting right dominant side; E11.52 Type 2 diabetes mellitus with diabetic peripheral angiopathy with gangrene; M86.8X7 Other osteomyelitis, ankle and foot; I35.0 Nonrheumatic aortic (valve) stenosis; I25.10 Atherosclerotic heart disease of native coronary artery without angina pectoris; D63.1 Anemia in chronic kidney disease; E78.00 Pure hypercholesterolemia, unspecified; E78.5 Hyperlipidemia, unspecified; E11.69 Type 2 diabetes mellitus with other specified complication; E11.22 Type 2 diabetes mellitus with diabetic chronic kidney disease; M47.895 Other spondylosis, thoracolumbar region; F32.9 Major depressive disorder, single episode, unspecified; M54.9 Dorsalgia, unspecified; G25.3 Myoclonus; E11.621 Type 2 diabetes mellitus with foot ulcer; I95.9 Hypotension, unspecified; I25.5 Ischemic cardiomyopathy; G89.4 Chronic pain syndrome; I27.20 Pulmonary hypertension, unspecified; I25.2 Old myocardial infarction; Z95.5 Presence of coronary angioplasty implant and graft; Z79.82 Long term (current) use of aspirin; Z95.810 Presence of automatic (implantable) cardiac defibrillator; Z99.2 Dependence on renal dialysis; Z79.899 Other long term (current) drug therapy; Z87.891 Personal history of nicotine dependence; Z86.718 Personal history of other venous thrombosis and embolism; Z68.31 Body mass index [BMI] 31.0-31.9, adult; Z88.8 Allergy status to other drugs, medicaments and biological substances; S01.111A Laceration without foreign body of right eyelid and periocular area, initial encounter; W06.XXXA Fall from bed, initial encounter; Y93.89 Activity, other specified; Y99.8 Other external cause status; Y92.230 Patient room in hospital as the place of occurrence of the external cause
CPT/HCPCS: 36415; 70450; 71045; 73590; 73650; 80048; 80053; 80202; 82962; 83605; 83735; 83880; 84134; 84443; 84484; 85014; 85018; 85025; 85610; 85651; 86140; 86850; 86900; 86920; 87040; 93005; 93922; 96365; 99285; A4216; J0330; J0885; J1650; J2250; J2270; J2405; J2543; J2765; J3010; J3370; J3490; J7030; J7040; J7042; J7050; P9016; P9041; P9047; Q0163

== ENCOUNTER 2018-06-12 12:35 | Emergency (ER) | payer MEDICARE, MEDICAID ==
[~2018-06-12] VITALS: Ht 170.2 cm; Wt 80.0 kg
[2018-06-12 14:47] LABS: BASOPHILS % 1.2 % (0.0-2.0); EOSINOPHILS % 2.8 % (0.0-5.0); HEMATOCRIT. 28.5 % (42.0-52.0); HEMOGLOBIN. 9.4 g/dL (14.0-18.0); LYMPHOCYTES % 9.6 % (20.0-50.0); MEAN CORPUSCULAR VOLUME 90.9 fL (80.0-94.0); MONOCYTES % 14.5 % (2.0-8.0); NEUTROPHILS % 71.9 % (40.0-76.0); PLATELET 205 x1000/uL (130-400); RED BLOOD CELL COUNT 3.14 mill/uL (4.7-6.1); RED CELL DISTRIBUTION WIDTH 18.6 % (11.6-14.6)
[2018-06-12 14:49] LABS: CHLORIDE 94 mEq/L (98-107)
[2018-06-12 14:51] LABS: INR 1.3; PROTHROMBIN TIME 13.5 sec (9.1-11.1)
[2018-06-12 20:44] VITALS: BP 112/68
== END 2018-06-12 20:47 | disposition home or self-care (01) ==
LOC: ER 12:35 → ENRESERV 20:02 → ER 20:47 → CANBEDREQ 20:58
DX: T81.89XA Other complications of procedures, not elsewhere classified, initial encounter (principal); E78.00 Pure hypercholesterolemia, unspecified; N28.9 Disorder of kidney and ureter, unspecified; I10 Essential (primary) hypertension; Z86.73 Personal history of transient ischemic attack (TIA), and cerebral infarction without residual deficits; Z79.899 Other long term (current) drug therapy; Z89.511 Acquired absence of right leg below knee
CPT/HCPCS: 36415; 71045; 80053; 83605; 85025; 85610; 87040; 87076; 93005; 99285

== ENCOUNTER 2018-06-22 20:00 | Inpatient (IN) | payer MEDICARE, MEDICAID ==
[~2018-06-22] VITALS: Ht 167.6 cm; Wt 83.5 kg
[2018-06-22] MEDS ORDERED: PIPERACILLIN/TAZOBACTAM 3.375GM/50ML PREMIX IV ONE (21:00)
[2018-06-22] MEDS ORDERED: VANCOMYCIN 1 G PREMIX 200 ML IV SCH (21:00)
[2018-06-22 22:08] LABS: HEMATOCRIT. 32.4 % (42.0-52.0); HEMOGLOBIN. 10.5 g/dL (14.0-18.0); MEAN CORPUSCULAR HEMOGLOBIN 29.8 pg (28.0-32.0); PLATELET 201 x1000/uL (130-400); RED BLOOD CELL COUNT 3.52 mill/uL (4.7-6.1); RED CELL DISTRIBUTION WIDTH 19.2 % (11.6-14.6)
[2018-06-22 22:11] LABS: CHLORIDE 96 mEq/L (98-107)
[2018-06-22 22:13] LABS: INR 1.3; PROTHROMBIN TIME 13.4 sec (9.1-11.1)
[2018-06-22 22:24] LABS: NUCLEATED RED BLOOD CELLS 1 /100 WBC; PLATELET ESTIMATE NORMAL
[2018-06-23] VITALS (41 sets, daily range): BP systolic 82–148; BP diastolic 36–89
[2018-06-23] MEDS: DEXT 5%/LACTATED RINGERS 1,000 ML IV SCH ×2 (03:44→21:23)
[2018-06-23] MEDS: DEXAMETHASONE 4MG/ML 1ML VIAL IV SCH ×4 (05:40→23:17)
[2018-06-23] MEDS: PHENYTOIN SODIUM 100MG/2ML VIAL IV SCH ×3 (05:41→21:23)
[2018-06-23] MEDS ORDERED: MAGNESIUM/ALUMINUM HYDROXIDE/SIMETHICONE 30ML UDC PO PRN (06:00)
[2018-06-23] MEDS ORDERED: PIPERACILLIN/TAZ 3.375G PREMIX 50 ML IV SCH (06:00)
[2018-06-23] MEDS ORDERED: CLONIDINE 0.1MG TABLET PO PRN (06:00)
[2018-06-23] MEDS ORDERED: ACETAMINOPHEN 325MG TABLET PO PRN (06:00)
[2018-06-23] MEDS ORDERED: ONDANSETRON HCL 4MG/2ML VIAL IV PRN (06:00)
[2018-06-23] MEDS ORDERED: ONDANSETRON 4MG ODT PO PRN (06:30)
[2018-06-23] MEDS: PIPERACILLIN/TAZ 2.25G PREMIX 50 ML IV SCH ×3 (07:50→23:17)
[2018-06-23] MEDS ORDERED: VANCOMYCIN 1 G PREMIX 200 ML IV NR (09:00)
[2018-06-24] VITALS (49 sets, daily range): BP systolic 89–144; BP diastolic 32–88
[2018-06-24] MEDS: PHENYTOIN SODIUM 100MG/2ML VIAL IV SCH (05:05)
[2018-06-24] MEDS: DEXAMETHASONE 4MG/ML 1ML VIAL IV SCH ×3 (05:06→17:15)
[2018-06-24] MEDS: MORPHINE SULFATE 4 MG/ML CPJ (NOT FOR IM USE) IV PRN ×2 (05:16→10:12)
[2018-06-24 05:23] LABS: HEMATOCRIT. 31.4 % (42.0-52.0); HEMOGLOBIN. 10.2 g/dL (14.0-18.0); MEAN CORPUSCULAR VOLUME 92.2 fL (80.0-94.0); MEAN PLATELET VOLUME 8.9 fl (7.4-10.4); PLATELET 163 x1000/uL (130-400); RED CELL DISTRIBUTION WIDTH 19.7 % (11.6-14.6)
[2018-06-24 05:45] LABS: CHLORIDE 95 mEq/L (98-107)
[2018-06-24] MEDS ORDERED: CALAMINE LOTION 120ML TOP PRN (08:15)
[2018-06-24] MEDS: PIPERACILLIN/TAZ 2.25G PREMIX 50 ML IV SCH ×3 (08:53→23:12)
[2018-06-24] MEDS: SODIUM HYPOCHLORITE (0.25%) 480ML SOLUTION (HALF STRENGTH) TOP SCH (10:00)
[2018-06-24 10:32] LABS: PLATELET ESTIMATE NORMAL
[2018-06-24] MEDS: DEXT 5%/LACTATED RINGERS 1,000 ML IV SCH (11:59)
[2018-06-24] MEDS: PANTOPRAZOLE SODIUM 40 MG/VIAL IV SCH (12:03)
[2018-06-24] MEDS: INSULIN LISPRO 100 UNITS/ML SUBCUT SCH ×3 (12:45→21:10)
[2018-06-24] MEDS ORDERED: DEXTROSE 50% WATER 50ML SYRINGE IV PRN (12:45)
[2018-06-24] MEDS: BLOOD SUGAR DIAGNOSTIC STRIP TEST SCH ×3 (12:45→21:11)
[2018-06-24] MEDS ORDERED: PHENYTOIN SODIUM EXTENDED 100MG CAPSULE PO NR (16:45)
[2018-06-24] MEDS ORDERED: DIPHENHYDRAMINE 25MG CAPSULE PO PRN (16:45)
[2018-06-24] MEDS ORDERED: VANCOMYCIN 750 MG PREMIX 150 ML IV SCH (17:00)
[2018-06-24] MEDS: PHENYTOIN SODIUM EXTENDED 100MG CAPSULE PO SCH (21:08)
[2018-06-24] MEDS: HYDROCORTISONE 1% OINT 28.35GM TOP SCH (21:11)
[2018-06-25] VITALS (45 sets, daily range): BP systolic 53–144; BP diastolic 29–83
[2018-06-25 05:33] LABS: HEMOGLOBIN. 10.6 g/dL (14.0-18.0); MEAN CORPUSCULAR HEMOGLOBIN 30.3 pg (28.0-32.0); MEAN CORPUSCULAR VOLUME 94.1 fL (80.0-94.0); MEAN PLATELET VOLUME 9.5 fl (7.4-10.4); PLATELET 136 x1000/uL (130-400); RED CELL DISTRIBUTION WIDTH 20.7 % (11.6-14.6)
[2018-06-25 05:45] LABS: CHLORIDE 101 mEq/L (98-107)
[2018-06-25] MEDS: PHENYTOIN SODIUM EXTENDED 100MG CAPSULE PO SCH (05:58)
[2018-06-25] MEDS: BLOOD SUGAR DIAGNOSTIC STRIP TEST SCH ×4 (06:18→20:19)
[2018-06-25] MEDS: INSULIN LISPRO 100 UNITS/ML SUBCUT SCH ×4 (06:18→20:24)
[2018-06-25] MEDS ORDERED: BACITRACIN ZINC 15GM TUBE TOP ONE (07:48)
[2018-06-25] MEDS ORDERED: THROMBIN (BOVINE) 5000 UNITS/VIAL TOP ONE ×2 (07:48→07:49)
[2018-06-25] MEDS ORDERED: POVIDONE-IODINE OINT 28.4GM TOP ONE ×2 (07:48→09:21)
[2018-06-25] MEDS ORDERED: LIDOCAINE HCL/EPINEPHRINE 1%-EPI 1:100,000 20 ML VIAL ONE (07:49)
[2018-06-25] MEDS ORDERED: BACITRACIN 50,000 UNITS/VIAL ONE (07:50)
[2018-06-25] MEDS ORDERED: GELATIN SPONGE,COMPRESSED SZ 100 ONE (07:50)
[2018-06-25] MEDS ORDERED: NORMAL SALINE 0.9% 10 ML SYR ONE ×2 (07:57→13:01)
[2018-06-25] MEDS ORDERED: SODIUM CHLORIDE 0.9% 10ML VIAL ONE (07:58)
[2018-06-25] MEDS: MORPHINE SULFATE 4 MG/ML CPJ (NOT FOR IM USE) IV PRN ×2 (08:30→15:50)
[2018-06-25] MEDS: PIPERACILLIN/TAZ 2.25G PREMIX 50 ML IV SCH ×3 (08:51→23:30)
[2018-06-25] MEDS: SODIUM HYPOCHLORITE (0.25%) 480ML SOLUTION (HALF STRENGTH) TOP SCH (08:54)
[2018-06-25] MEDS: DEXAMETHASONE 4MG/ML 1ML VIAL IV SCH ×3 (08:54→23:30)
[2018-06-25] MEDS: PANTOPRAZOLE SODIUM 40 MG/VIAL IV SCH (08:54)
[2018-06-25] MEDS: HYDROCORTISONE 1% OINT 28.35GM TOP SCH ×2 (08:56→20:45)
[2018-06-25 10:05] LABS: PLATELET ESTIMATE NORMAL
[2018-06-25] MEDS ORDERED: ETOMIDATE 2MG/ML 10ML VIAL IV ONE (13:38)
[2018-06-25] MEDS ORDERED: PHENYLEPHRINE HCL 10 MG/ML 1ML (IV VIAL) IV ONE (13:38)
[2018-06-25] MEDS ORDERED: ROCURONIUM BROMIDE 10MG/ML VIAL 5ML IV ONE ×2 (13:38→14:14)
[2018-06-25] MEDS ORDERED: FENTANYL CITRATE/PF 50MCG/ML 5ML VIAL ONE (13:41)
[2018-06-25] MEDS ORDERED: ONDANSETRON HCL 4MG/2ML VIAL ONE (14:40)
[2018-06-25] MEDS ORDERED: NEOSTIGMINE METHYLSULFATE 1MG/ML 10 ML VIAL ONE (14:41)
[2018-06-25] MEDS ORDERED: GLYCOPYRROLATE 0.2 MG/ML 2ML VIAL ONE (14:42)
[2018-06-25] MEDS ORDERED: NICARDIPINE 100 MG in SODIUM CHLORIDE 0.9% 60 ML IV PRN (15:00)
[2018-06-25 15:53] LABS: BG BASE EXCESS -4.4 mmol/L (-2.0-2.0); BG CARBOXYHEMOGLOBIN 0.6 % (0.5-1.5); BG DEOXYHEMOGLOBIN 6.5 % (0.0-5.0); BG FRACTION INSPIRED OXYGEN 50; BG HCO3 ACT 20.2 mmol/L (22.0-26.0); BG METHEMOGLOBIN 0.2 % (0.0-1.5); BG OXYGEN SATURATION 93.4 % (92.0-98.5); BG OXYHEMOGLOBIN 92.7 % (94.0-97.0); BG PCO2 35.8 mmHg (35.0-45.0); BG PO2 72.8 mmHg (75.0-100.0); BG SAMPLE SITE A-LINE; BG TIDAL VOLUME(mL) 600 mL; BG TOTAL HEMOGLOBIN 11.5 g/dL (12.0-18.0); BG VENT MODE VENT - A/C; BG VENT RATE 16 set
[2018-06-25] MEDS ORDERED: IPRATROPIUM/ALBUTEROL 0.5-3(2.5)MG/3ML NEB HHN PRN (16:00)
[2018-06-25] MEDS: CEFAZOLIN 1000MG PREMIX 50 ML IV SCH ×2 (17:03→23:04)
[2018-06-25] MEDS: PROPOFOL 10MG/ML 100ML 100 ML IV PRN ×2 (17:04→22:01)
[2018-06-25] MEDS: DEXT 5%/LACTATED RINGERS 1,000 ML IV SCH (17:20)
[2018-06-25] MEDS ORDERED: DEXAMETHASONE 4MG/ML 1ML VIAL IV SCH (18:00)
[2018-06-25] MEDS: BUDESONIDE 0.5MG/2ML NEB HHN SCH (19:55)
[2018-06-25] MEDS: IPRATROPIUM/ALBUTEROL 0.5-3(2.5)MG/3ML NEB HHN SCH (19:56)
[2018-06-25] MEDS: PHENYTOIN SODIUM 100MG/2ML VIAL IV SCH (21:58)
[2018-06-26] VITALS (50 sets, daily range): BP systolic 83–212; BP diastolic 36–212
[2018-06-26] MEDS: IPRATROPIUM/ALBUTEROL 0.5-3(2.5)MG/3ML NEB HHN SCH ×3 (01:57→20:49)
[2018-06-26] MEDS: PROPOFOL 10MG/ML 100ML 100 ML IV PRN (03:38)
[2018-06-26] MEDS: INSULIN LISPRO 100 UNITS/ML SUBCUT SCH ×4 (05:58→20:36)
[2018-06-26] MEDS: BLOOD SUGAR DIAGNOSTIC STRIP TEST SCH ×4 (05:58→20:35)
[2018-06-26] MEDS: PHENYTOIN SODIUM 100MG/2ML VIAL IV SCH ×3 (05:59→23:22)
[2018-06-26] MEDS: DEXAMETHASONE 4MG/ML 1ML VIAL IV SCH ×3 (05:59→17:52)
[2018-06-26] MEDS: DEXT 5%/LACTATED RINGERS 1,000 ML IV SCH ×2 (07:03→18:07)
[2018-06-26] MEDS: PANTOPRAZOLE SODIUM 40 MG/VIAL IV SCH (08:08)
[2018-06-26] MEDS: CEFAZOLIN 1000MG PREMIX 50 ML IV SCH (08:08)
[2018-06-26] MEDS: PIPERACILLIN/TAZ 2.25G PREMIX 50 ML IV SCH (08:08)
[2018-06-26] MEDS: HYDROCORTISONE 1% OINT 28.35GM TOP SCH ×2 (08:16→20:37)
[2018-06-26] MEDS: SODIUM HYPOCHLORITE (0.25%) 480ML SOLUTION (HALF STRENGTH) TOP SCH (08:17)
[2018-06-26 08:25] LABS: BG BASE EXCESS -2.6 mmol/L (-2.0-2.0); BG CARBOXYHEMOGLOBIN 0.5 % (0.5-1.5); BG DEOXYHEMOGLOBIN 1.4 % (0.0-5.0); BG FRACTION INSPIRED OXYGEN 40; BG HCO3 ACT 22.5 mmol/L (22.0-26.0); BG METHEMOGLOBIN 0.3 % (0.0-1.5); BG OXYGEN SATURATION 98.6 % (92.0-98.5); BG OXYHEMOGLOBIN 97.8 % (94.0-97.0); BG PCO2 40.3 mmHg (35.0-45.0); BG PH 7.365 (7.350-7.450); BG PO2 137.2 mmHg (75.0-100.0); BG PRESSURE SUPPORT 10; BG SAMPLE SITE RIGHT RADIAL; BG TIDAL VOLUME(mL) 600 mL; BG TOTAL HEMOGLOBIN 10.6 g/dL (12.0-18.0); BG VENT MODE VENT - SIMV; BG VENT RATE 12 set
[2018-06-26] MEDS: CEFTRIAXONE 1 G PREMIX 50 ML IV SCH (10:46)
[2018-06-26] MEDS: LINEZOLID 600 MG PREMIX 300 ML IV SCH ×2 (11:36→23:25)
[2018-06-26] MEDS: MORPHINE SULFATE 4 MG/ML CPJ (NOT FOR IM USE) IV PRN (15:43)
[2018-06-26] MEDS: BUDESONIDE 0.5MG/2ML NEB HHN SCH (20:50)
[2018-06-27] VITALS (24 sets, daily range): BP systolic 98–133; BP diastolic 51–98
[2018-06-27] MEDS: DEXAMETHASONE 4MG/ML 1ML VIAL IV SCH ×3 (00:48→17:31)
[2018-06-27 01:02] LABS: BG BASE EXCESS -3.2 mmol/L (-2.0-2.0); BG CARBOXYHEMOGLOBIN 0.7 % (0.5-1.5); BG DEOXYHEMOGLOBIN 1.5 % (0.0-5.0); BG FRACTION INSPIRED OXYGEN 40; BG HCO3 ACT 22.2 mmol/L (22.0-26.0); BG METHEMOGLOBIN 0.3 % (0.0-1.5); BG OXYGEN SATURATION 98.5 % (92.0-98.5); BG OXYHEMOGLOBIN 97.5 % (94.0-97.0); BG PCO2 41.2 mmHg (35.0-45.0); BG PRESSURE SUPPORT 10; BG SAMPLE SITE RIGHT RADIAL; BG TOTAL HEMOGLOBIN 11.4 g/dL (12.0-18.0); BG VENT MODE VENT - CPAP
[2018-06-27] MEDS: IPRATROPIUM/ALBUTEROL 0.5-3(2.5)MG/3ML NEB HHN SCH ×4 (01:59→19:44)
[2018-06-27] MEDS: BLOOD SUGAR DIAGNOSTIC STRIP TEST SCH ×4 (05:39→21:00)
[2018-06-27] MEDS: INSULIN LISPRO 100 UNITS/ML SUBCUT SCH ×4 (05:39→21:00)
[2018-06-27] MEDS: PHENYTOIN SODIUM 100MG/2ML VIAL IV SCH ×3 (05:40→22:39)
[2018-06-27 08:30] LABS: BG BASE EXCESS -5.2 mmol/L (-2.0-2.0); BG CARBOXYHEMOGLOBIN 0.8 % (0.5-1.5); BG DEOXYHEMOGLOBIN 1.9 % (0.0-5.0); BG FRACTION INSPIRED OXYGEN 40; BG HCO3 ACT 21.2 mmol/L (22.0-26.0); BG METHEMOGLOBIN 0.4 % (0.0-1.5); BG OXYGEN SATURATION 98.1 % (92.0-98.5); BG OXYHEMOGLOBIN 96.9 % (94.0-97.0); BG PCO2 44.6 mmHg (35.0-45.0); BG PH 7.294 (7.350-7.450); BG PO2 129.1 mmHg (75.0-100.0); BG PRESSURE SUPPORT 8; BG SAMPLE SITE RIGHT RADIAL; BG TOTAL HEMOGLOBIN 12.3 g/dL (12.0-18.0); BG VENT MODE VENT - CPAP
[2018-06-27] MEDS: BUDESONIDE 0.5MG/2ML NEB HHN SCH ×2 (09:08→19:44)
[2018-06-27] MEDS: PANTOPRAZOLE SODIUM 40 MG/VIAL IV SCH (09:11)
[2018-06-27] MEDS: HYDROCORTISONE 1% OINT 28.35GM TOP SCH ×2 (09:12→21:00)
[2018-06-27] MEDS: SODIUM HYPOCHLORITE (0.25%) 480ML SOLUTION (HALF STRENGTH) TOP SCH (09:12)
[2018-06-27] MEDS: CEFTRIAXONE 1 G PREMIX 50 ML IV SCH (09:12)
[2018-06-27] MEDS: LINEZOLID 600 MG PREMIX 300 ML IV SCH ×2 (11:20→22:40)
[2018-06-27] MEDS: MORPHINE SULFATE 4 MG/ML CPJ (NOT FOR IM USE) IV PRN (17:34)
[2018-06-27] MEDS: DIPHENHYDRAMINE 50MG/ML VIAL IV PRN (23:42)
[2018-06-28] VITALS (54 sets, daily range): BP systolic 91–147; BP diastolic 23–96
[2018-06-28] MEDS: DEXAMETHASONE 4MG/ML 1ML VIAL IV SCH ×3 (01:37→17:35)
[2018-06-28] MEDS: IPRATROPIUM/ALBUTEROL 0.5-3(2.5)MG/3ML NEB HHN SCH ×5 (01:50→20:15)
[2018-06-28] MEDS: PHENYTOIN SODIUM 100MG/2ML VIAL IV SCH ×3 (05:54→21:16)
[2018-06-28] MEDS: INSULIN LISPRO 100 UNITS/ML SUBCUT SCH ×4 (06:07→21:00)
[2018-06-28] MEDS: BLOOD SUGAR DIAGNOSTIC STRIP TEST SCH ×4 (06:07→21:16)
[2018-06-28] MEDS: BUDESONIDE 0.5MG/2ML NEB HHN SCH (08:00)
[2018-06-28] MEDS: PANTOPRAZOLE SODIUM 40 MG/VIAL IV SCH (10:43)
[2018-06-28] MEDS: HYDROCORTISONE 1% OINT 28.35GM TOP SCH ×2 (10:44→21:17)
[2018-06-28] MEDS: CEFTRIAXONE 1 G PREMIX 50 ML IV SCH (10:44)
[2018-06-28] MEDS: SODIUM HYPOCHLORITE (0.25%) 480ML SOLUTION (HALF STRENGTH) TOP SCH (10:45)
[2018-06-28] MEDS: LINEZOLID 600 MG PREMIX 300 ML IV SCH ×2 (10:45→23:17)
[2018-06-28] MEDS: DIPHENHYDRAMINE 50MG/ML VIAL IV PRN (15:18)
[2018-06-28] MEDS ORDERED: LIDOCAINE HCL/EPINEPHRINE 1%-EPI 1:100,000 20 ML VIAL INFIL SCH (20:00)
[2018-06-29] VITALS (29 sets, daily range): BP systolic 104–141; BP diastolic 51–103
[2018-06-29] MEDS: DEXAMETHASONE 4MG/ML 1ML VIAL IV SCH ×3 (01:07→17:44)
[2018-06-29] MEDS: MORPHINE SULFATE 4 MG/ML CPJ (NOT FOR IM USE) IV PRN ×2 (03:31→09:43)
[2018-06-29] MEDS: PHENYTOIN 100 MG/4 ML UDC PO SCH ×3 (05:49→21:38)
[2018-06-29] MEDS: BLOOD SUGAR DIAGNOSTIC STRIP TEST SCH ×4 (05:49→22:09)
[2018-06-29] MEDS: INSULIN LISPRO 100 UNITS/ML SUBCUT SCH ×5 (06:04→21:00)
[2018-06-29] MEDS: IPRATROPIUM/ALBUTEROL 0.5-3(2.5)MG/3ML NEB HHN SCH ×3 (07:54→21:18)
[2018-06-29] MEDS: HYDROCORTISONE 1% OINT 28.35GM TOP SCH ×2 (09:43→21:37)
[2018-06-29] MEDS: SODIUM HYPOCHLORITE (0.25%) 480ML SOLUTION (HALF STRENGTH) TOP SCH (09:43)
[2018-06-29] MEDS: PANTOPRAZOLE SODIUM 40 MG/VIAL IV SCH (09:43)
[2018-06-29] MEDS: CEFTRIAXONE 1 G PREMIX 50 ML IV SCH (11:15)
[2018-06-29] MEDS: LINEZOLID 600 MG PREMIX 300 ML IV SCH (12:07)
[2018-06-30] VITALS: BP 138/72
[2018-06-30] MEDS: LINEZOLID 600 MG PREMIX 300 ML IV SCH ×2 (01:28→14:54)
[2018-06-30] MEDS: DEXAMETHASONE 4MG/ML 1ML VIAL IV SCH ×3 (02:42→19:59)
[2018-06-30] MEDS: IPRATROPIUM/ALBUTEROL 0.5-3(2.5)MG/3ML NEB HHN SCH ×3 (02:42→22:03)
[2018-06-30 04:00] VITALS: BP 122/74
[2018-06-30 07:08] LABS: BASOPHILS % 0.2 % (0.0-2.0); EOSINOPHILS % 0.9 % (0.0-5.0); HEMATOCRIT. 32.7 % (42.0-52.0); HEMOGLOBIN. 10.7 g/dL (14.0-18.0); LYMPHOCYTES % 8.8 % (20.0-50.0); MEAN CORPUSCULAR HEMOGLOBIN 30.7 pg (28.0-32.0); MEAN CORPUSCULAR VOLUME 94.2 fL (80.0-94.0); MEAN PLATELET VOLUME 10.1 fl (7.4-10.4); MONOCYTES % 6.3 % (2.0-8.0); NEUTROPHILS % 83.8 % (40.0-76.0); PLATELET 92 x1000/uL (130-400); RED BLOOD CELL COUNT 3.47 mill/uL (4.7-6.1)
[2018-06-30 07:19] LABS: CHLORIDE 98 mEq/L (98-107)
[2018-06-30] MEDS: INSULIN LISPRO 100 UNITS/ML SUBCUT SCH ×4 (07:50→21:00)
[2018-06-30] MEDS: PHENYTOIN 100 MG/4 ML UDC PO SCH ×3 (07:55→21:43)
[2018-06-30 08:00] VITALS: BP 127/76
[2018-06-30] MEDS: BLOOD SUGAR DIAGNOSTIC STRIP TEST SCH ×4 (08:03→21:52)
[2018-06-30] MEDS: HYDROCORTISONE 1% OINT 28.35GM TOP SCH ×2 (09:00→21:51)
[2018-06-30] MEDS: SODIUM HYPOCHLORITE (0.25%) 480ML SOLUTION (HALF STRENGTH) TOP SCH (09:00)
[2018-06-30] MEDS: CEFTRIAXONE 1 G PREMIX 50 ML IV SCH (10:23)
[2018-06-30] MEDS: FAMOTIDINE 20MG/2ML VIAL IV SCH (10:24)
[2018-06-30 12:00] VITALS: BP 130/75
[2018-06-30 16:00] VITALS: BP 138/78
[2018-06-30] MEDS: GUAIFENESIN 600MG ER TABLET PO SCH (21:43)
[2018-06-30 22:18] VITALS: BP 137/76
[2018-07-01] VITALS: BP 149/74
[2018-07-01] MEDS: DEXAMETHASONE 4MG/ML 1ML VIAL IV SCH ×3 (02:48→18:37)
[2018-07-01] MEDS: LINEZOLID 600 MG PREMIX 300 ML IV SCH ×2 (02:48→15:23)
[2018-07-01] MEDS: IPRATROPIUM/ALBUTEROL 0.5-3(2.5)MG/3ML NEB HHN SCH ×4 (03:39→21:41)
[2018-07-01 04:00] VITALS: BP 130/76
[2018-07-01] MEDS: PHENYTOIN 100 MG/4 ML UDC PO SCH ×3 (06:00→22:00)
[2018-07-01] MEDS: BLOOD SUGAR DIAGNOSTIC STRIP TEST SCH ×4 (06:55→22:29)
[2018-07-01] MEDS: INSULIN LISPRO 100 UNITS/ML SUBCUT SCH ×4 (07:50→21:00)
[2018-07-01 08:00] VITALS: BP 136/76
[2018-07-01] MEDS: SODIUM HYPOCHLORITE (0.25%) 480ML SOLUTION (HALF STRENGTH) TOP SCH (09:00)
[2018-07-01] MEDS: HYDROCORTISONE 1% OINT 28.35GM TOP SCH ×2 (09:00→22:00)
[2018-07-01] MEDS: GUAIFENESIN 600MG ER TABLET PO SCH ×2 (09:00→22:00)
[2018-07-01] MEDS: FAMOTIDINE 20MG/2ML VIAL IV SCH (09:57)
[2018-07-01] MEDS: CEFTRIAXONE 1 G PREMIX 50 ML IV SCH (09:58)
[2018-07-01 12:00] VITALS: BP 137/86
[2018-07-01] MEDS ORDERED: PHENYTOIN SODIUM 100MG/2ML VIAL IV NR (15:00)
[2018-07-01 16:00] VITALS: BP 135/83
[2018-07-01 20:00] VITALS: BP 122/72
[2018-07-02] VITALS (18 sets, daily range): BP systolic 90–152; BP diastolic 53–91
[2018-07-02] MEDS: LINEZOLID 600 MG PREMIX 300 ML IV SCH ×2 (02:32→15:00)
[2018-07-02] MEDS: DEXAMETHASONE 4MG/ML 1ML VIAL IV SCH ×3 (02:37→17:45)
[2018-07-02] MEDS: IPRATROPIUM/ALBUTEROL 0.5-3(2.5)MG/3ML NEB HHN SCH ×4 (02:46→20:19)
[2018-07-02] MEDS: PHENYTOIN 100 MG/4 ML UDC PO SCH (06:00)
[2018-07-02] MEDS: BLOOD SUGAR DIAGNOSTIC STRIP TEST SCH ×4 (06:51→21:30)
[2018-07-02] MEDS: INSULIN LISPRO 100 UNITS/ML SUBCUT SCH ×4 (07:03→21:00)
[2018-07-02] MEDS: GUAIFENESIN 600MG ER TABLET PO SCH ×2 (08:03→21:00)
[2018-07-02] MEDS: HYDROCORTISONE 1% OINT 28.35GM TOP SCH ×2 (09:49→21:00)
[2018-07-02] MEDS: SODIUM HYPOCHLORITE (0.25%) 480ML SOLUTION (HALF STRENGTH) TOP SCH (09:49)
[2018-07-02] MEDS: PHENYTOIN SODIUM 100MG/2ML VIAL IV SCH ×3 (09:50→21:40)
[2018-07-02] MEDS: FAMOTIDINE 20MG/2ML VIAL IV SCH (09:50)
[2018-07-02] MEDS: CEFTRIAXONE 1 G PREMIX 50 ML IV SCH (10:04)
[2018-07-02 13:21] LABS: HEMATOCRIT. 34.8 % (42.0-52.0); HEMOGLOBIN. 11.4 g/dL (14.0-18.0); MEAN CORPUSCULAR HEMOGLOBIN 30.5 pg (28.0-32.0); MEAN CORPUSCULAR VOLUME 92.7 fL (80.0-94.0); MEAN PLATELET VOLUME 9.3 fl (7.4-10.4); PLATELET 105 x1000/uL (130-400); RED BLOOD CELL COUNT 3.75 mill/uL (4.7-6.1); RED CELL DISTRIBUTION WIDTH 23.2 % (11.6-14.6)
[2018-07-02 13:51] LABS: PLATELET ESTIMATE DECREASED
[2018-07-02] MEDS ORDERED: VANCOMYCIN HCL 500 MG/VIAL ONE (14:45)
[2018-07-02] MEDS ORDERED: LORAZEPAM 2MG/ML CPJ IM PRN (15:00)
[2018-07-02] MEDS ORDERED: SODIUM BICARBONATE 4% (2.4MEQ) 5ML VIAL IV ONE (16:58)
[2018-07-02] MEDS ORDERED: LIDOCAINE HCL 1% 10 MG/ML 10ML VIAL ONE (16:58)
[2018-07-02] MEDS ORDERED: ROCURONIUM BROMIDE 10MG/ML VIAL 5ML IV ONE ×2 (18:26→19:26)
[2018-07-02] MEDS ORDERED: FENTANYL CITRATE/PF 50MCG/ML 5ML VIAL ONE (18:37)
[2018-07-02] MEDS ORDERED: EPINEPHRINE 1:1000 1 MG/ML AMP ONE ×2 (18:58→19:03)
[2018-07-02] MEDS ORDERED: BUPIVACAINE HCL/EPINEPHRINE 0.5%/0.0005 30ML ONE (19:37)
[2018-07-02 20:55] LABS: BG BASE EXCESS -3.4 mmol/L (-2.0-2.0); BG CARBOXYHEMOGLOBIN 0.5 % (0.5-1.5); BG DEOXYHEMOGLOBIN 0.2 % (0.0-5.0); BG FRACTION INSPIRED OXYGEN 100; BG HCO3 ACT 22.1 mmol/L (22.0-26.0); BG METHEMOGLOBIN 0.3 % (0.0-1.5); BG OXYGEN SATURATION 99.8 % (92.0-98.5); BG PCO2 41.6 mmHg (35.0-45.0); BG PH 7.343 (7.350-7.450); BG PO2 348.2 mmHg (75.0-100.0); BG SAMPLE SITE RIGHT BRACHIAL; BG TIDAL VOLUME(mL) 500 mL; BG TOTAL HEMOGLOBIN 10.5 g/dL (12.0-18.0); BG VENT MODE VENT - A/C; BG VENT RATE 10 set
[2018-07-02 22:18] LABS: HEMATOCRIT 28.9 % (42.0-52.0); HEMOGLOBIN 9.6 g/dL (14.0-18.0); MEAN CORPUSCULAR HEMOGLOBIN 30.5 pg (28.0-32.0); PLATELET 114 x1000/uL (130-400); RED BLOOD CELL COUNT 3.14 mill/uL (4.7-6.1); RED CELL DISTRIBUTION WIDTH 22.6 % (11.6-14.6)
[2018-07-02] MEDS ORDERED: PROPOFOL 10MG/ML 100ML 100 ML IV PRN (23:30)
[2018-07-03] VITALS (69 sets, daily range): BP systolic 94–136; BP diastolic 49–81
[2018-07-03] MEDS: DEXAMETHASONE 4MG/ML 1ML VIAL IV SCH ×3 (02:29→17:02)
[2018-07-03] MEDS: IPRATROPIUM/ALBUTEROL 0.5-3(2.5)MG/3ML NEB HHN SCH ×4 (02:34→20:39)
[2018-07-03] MEDS: PHENYTOIN SODIUM 100MG/2ML VIAL IV SCH ×3 (05:05→21:14)
[2018-07-03] MEDS: BLOOD SUGAR DIAGNOSTIC STRIP TEST SCH ×4 (06:28→21:00)
[2018-07-03] MEDS: INSULIN LISPRO 100 UNITS/ML SUBCUT SCH ×4 (06:28→21:00)
[2018-07-03] MEDS: SODIUM HYPOCHLORITE (0.25%) 480ML SOLUTION (HALF STRENGTH) TOP SCH (09:00)
[2018-07-03] MEDS: HYDROCORTISONE 1% OINT 28.35GM TOP SCH ×2 (09:00→21:08)
[2018-07-03] MEDS: GUAIFENESIN 600MG ER TABLET PO SCH ×2 (09:00→21:14)
[2018-07-03] MEDS: FAMOTIDINE 20MG/2ML VIAL IV SCH (09:38)
[2018-07-03] MEDS: CEFTRIAXONE 1 G PREMIX 50 ML IV SCH (10:00)
[2018-07-03 11:15] LABS: BG BASE EXCESS -0.6 mmol/L (-2.0-2.0); BG CARBOXYHEMOGLOBIN 0.6 % (0.5-1.5); BG DEOXYHEMOGLOBIN 1.1 % (0.0-5.0); BG FRACTION INSPIRED OXYGEN 40; BG METHEMOGLOBIN 0.3 % (0.0-1.5); BG OXYGEN SATURATION 98.9 % (92.0-98.5); BG PCO2 39.3 mmHg (35.0-45.0); BG PH 7.404 (7.350-7.450); BG PO2 150.8 mmHg (75.0-100.0); BG PRESSURE SUPPORT 8; BG SAMPLE SITE RIGHT RADIAL; BG TOTAL HEMOGLOBIN 9.5 g/dL (12.0-18.0); BG VENT MODE VENT - CPAP
[2018-07-03] MEDS: MORPHINE SULFATE 4 MG/ML CPJ (NOT FOR IM USE) IV PRN (19:44)
[2018-07-04] VITALS (41 sets, daily range): BP systolic 93–139; BP diastolic 36–76
[2018-07-04] MEDS: DEXAMETHASONE 4MG/ML 1ML VIAL IV SCH ×3 (01:03→18:15)
[2018-07-04] MEDS: MORPHINE SULFATE 4 MG/ML CPJ (NOT FOR IM USE) IV PRN ×3 (01:29→16:58)
[2018-07-04] MEDS: IPRATROPIUM/ALBUTEROL 0.5-3(2.5)MG/3ML NEB HHN SCH ×4 (01:51→20:02)
[2018-07-04] MEDS: PHENYTOIN SODIUM 100MG/2ML VIAL IV SCH ×3 (05:59→21:00)
[2018-07-04] MEDS: INSULIN LISPRO 100 UNITS/ML SUBCUT SCH ×4 (06:07→20:57)
[2018-07-04] MEDS: BLOOD SUGAR DIAGNOSTIC STRIP TEST SCH ×4 (06:07→20:57)
[2018-07-04] MEDS: HYDROCORTISONE 1% OINT 28.35GM TOP SCH ×2 (09:00→20:49)
[2018-07-04] MEDS: FAMOTIDINE 20MG/2ML VIAL IV SCH (09:51)
[2018-07-04] MEDS: GUAIFENESIN 600MG ER TABLET PO SCH ×2 (09:51→20:58)
[2018-07-04 09:55] LABS: BASOPHILS % 0.5 % (0.0-2.0); EOSINOPHILS % 0.4 % (0.0-5.0); HEMATOCRIT. 24.5 % (42.0-52.0); HEMOGLOBIN. 7.9 g/dL (14.0-18.0); LYMPHOCYTES % 9.7 % (20.0-50.0); MEAN CORPUSCULAR HEMOGLOBIN 30.3 pg (28.0-32.0); MEAN PLATELET VOLUME 9.9 fl (7.4-10.4); MONOCYTES % 12.8 % (2.0-8.0); NEUTROPHILS % 76.6 % (40.0-76.0); PLATELET 88 x1000/uL (130-400); RED CELL DISTRIBUTION WIDTH 23.2 % (11.6-14.6)
[2018-07-04] MEDS ORDERED: EPOETIN ALFA 4000UNITS/ML VIAL SUBCUT SCH (21:00)
[2018-07-04] MEDS ORDERED: EPOETIN ALFA 10000UNITS/ML VIAL SUBCUT SCH (21:00)
[2018-07-05] VITALS (7 sets, daily range): BP systolic 100–139; BP diastolic 58–80
[2018-07-05] MEDS: IPRATROPIUM/ALBUTEROL 0.5-3(2.5)MG/3ML NEB HHN SCH ×3 (01:14→12:00)
[2018-07-05] MEDS: DEXAMETHASONE 4MG/ML 1ML VIAL IV SCH ×2 (02:02→09:35)
[2018-07-05] MEDS: PHENYTOIN SODIUM 100MG/2ML VIAL IV SCH ×2 (05:31→14:33)
[2018-07-05] MEDS: BLOOD SUGAR DIAGNOSTIC STRIP TEST SCH ×2 (05:42→12:15)
[2018-07-05] MEDS: INSULIN LISPRO 100 UNITS/ML SUBCUT SCH ×2 (05:42→12:15)
[2018-07-05] MEDS: FAMOTIDINE 20MG/2ML VIAL IV SCH (09:35)
[2018-07-05] MEDS: GUAIFENESIN 600MG ER TABLET PO SCH (09:35)
[2018-07-05] MEDS: MORPHINE SULFATE 4 MG/ML CPJ (NOT FOR IM USE) IV PRN (09:35)
[2018-07-05] MEDS: HYDROCORTISONE 1% OINT 28.35GM TOP SCH (09:35)
== END 2018-07-05 20:35 | DRG 474 ==
LOC: ER 20:00 → MICUSO 23:47 → EDBEDREQ 23:50 → EDBEDREQSVC 23:50 → EDBEDREQTM 23:50 → ENRESERV 06-23 00:15 → 6EST 06-29 07:05 → MICUSO 07-02 20:00 → MICUNO 07-03 19:20 → 8WST 07-04 22:00
PROVIDERS: ADMIT Hospitalist; ATTEND Hospitalist
PROC: 5A1D70Z Performance of Urinary Filtration, Intermittent, Less than 6 Hours Per Day (ICD-10-PCS; 2018-06-24)
PROC: 0BH17EZ Insertion of Endotracheal Airway into Trachea, Via Natural or Artificial Opening (ICD-10-PCS; 2018-06-25)
PROC: 5A1945Z Respiratory Ventilation, 24-96 Consecutive Hours (ICD-10-PCS; 2018-06-25)
PROC: 00C40ZZ Extirpation of Matter from Intracranial Subdural Space, Open Approach (ICD-10-PCS; 2018-06-25)
PROC: 00H002Z Insertion of Monitoring Device into Brain, Open Approach (ICD-10-PCS; 2018-06-25)
PROC: 00U207Z Supplement Dura Mater with Autologous Tissue Substitute, Open Approach (ICD-10-PCS; 2018-06-25)
PROC: 4A103BD Monitoring of Intracranial Pressure, Percutaneous Approach (ICD-10-PCS; 2018-06-25)
PROC: 5A1D70Z Performance of Urinary Filtration, Intermittent, Less than 6 Hours Per Day (ICD-10-PCS; 2018-06-26)
PROC: 5A09357 Assistance with Respiratory Ventilation, Less than 24 Consecutive Hours, Continuous Positive Airway Pressure (ICD-10-PCS; 2018-06-27)
PROC: 5A1D70Z Performance of Urinary Filtration, Intermittent, Less than 6 Hours Per Day (ICD-10-PCS; 2018-06-28)
PROC: 0KBS0ZZ Excision of Right Lower Leg Muscle, Open Approach (ICD-10-PCS; 2018-06-29)
PROC: 5A09357 Assistance with Respiratory Ventilation, Less than 24 Consecutive Hours, Continuous Positive Airway Pressure (ICD-10-PCS; 2018-06-30)
PROC: 5A1D70Z Performance of Urinary Filtration, Intermittent, Less than 6 Hours Per Day (ICD-10-PCS; 2018-06-30)
PROC: 06HY33Z Insertion of Infusion Device into Lower Vein, Percutaneous Approach (ICD-10-PCS; 2018-07-02)
PROC: B54BZZA Ultrasonography of Right Lower Extremity Veins, Guidance (ICD-10-PCS; 2018-07-02)
PROC: 5A1D70Z Performance of Urinary Filtration, Intermittent, Less than 6 Hours Per Day (ICD-10-PCS; 2018-07-02)
PROC: 0Y6C0Z1 Detachment at Right Upper Leg, High, Open Approach (ICD-10-PCS; principal; 2018-07-02 18:00)
PROC: 5A09357 Assistance with Respiratory Ventilation, Less than 24 Consecutive Hours, Continuous Positive Airway Pressure (ICD-10-PCS; 2018-07-04)
PROC: 5A1D70Z Performance of Urinary Filtration, Intermittent, Less than 6 Hours Per Day (ICD-10-PCS; 2018-07-04)
DX: T87.81 Dehiscence of amputation stump (principal); I62.02 Nontraumatic subacute subdural hemorrhage; J96.00 Acute respiratory failure, unspecified whether with hypoxia or hypercapnia; G93.40 Encephalopathy, unspecified; N18.6 End stage renal disease; A41.81 Sepsis due to Enterococcus; I62.03 Nontraumatic chronic subdural hemorrhage; I12.0 Hypertensive chronic kidney disease with stage 5 chronic kidney disease or end stage renal disease; E11.52 Type 2 diabetes mellitus with diabetic peripheral angiopathy with gangrene; I42.0 Dilated cardiomyopathy; I69.351 Hemiplegia and hemiparesis following cerebral infarction affecting right dominant side; I70.261 Atherosclerosis of native arteries of extremities with gangrene, right leg; L97.813 Non-pressure chronic ulcer of other part of right lower leg with necrosis of muscle; T87.43 Infection of amputation stump, right lower extremity; E11.22 Type 2 diabetes mellitus with diabetic chronic kidney disease; D63.1 Anemia in chronic kidney disease; E87.70 Fluid overload, unspecified; F32.9 Major depressive disorder, single episode, unspecified; G89.4 Chronic pain syndrome; I25.10 Atherosclerotic heart disease of native coronary artery without angina pectoris; I25.2 Old myocardial infarction; I35.0 Nonrheumatic aortic (valve) stenosis; M47.815 Spondylosis without myelopathy or radiculopathy, thoracolumbar region; L29.9 Pruritus, unspecified; B96.4 Proteus (mirabilis) (morganii) as the cause of diseases classified elsewhere; M51.35 Other intervertebral disc degeneration, thoracolumbar region; R62.7 Adult failure to thrive; E66.9 Obesity, unspecified; Z16.21 Resistance to vancomycin; Z78.1 Physical restraint status; Z86.718 Personal history of other venous thrombosis and embolism; Z89.612 Acquired absence of left leg above knee; Z79.82 Long term (current) use of aspirin; Z79.899 Other long term (current) drug therapy; Z68.29 Body mass index [BMI] 29.0-29.9, adult; Z89.511 Acquired absence of right leg below knee; Z95.810 Presence of automatic (implantable) cardiac defibrillator; Z99.2 Dependence on renal dialysis; Z88.8 Allergy status to other drugs, medicaments and biological substances; Z95.5 Presence of coronary angioplasty implant and graft; Y83.5 Amputation of limb(s) as the cause of abnormal reaction of the patient, or of later complication, without mention of misadventure at the time of the procedure; Y92.238 Other place in hospital as the place of occurrence of the external cause
CPT/HCPCS: 36415; 36556; 36600; 70450; 71045; 73700; 76937; 80048; 80053; 80185; 80202; 82375; 82805; 82962; 83605; 83735; 84134; 84478; 85025; 85027; 85610; 85651; 86140; 86850; 86900; 86920; 87040; 87070; 87075; 87077; 87186; 87205; 88307; 88311; 92610; 92950; 93005; 94002; 94003; 94640; 94660; 96365; 96367; 97110; 97163; 97164; 97166; 97168; 97530; 99291; A4216; C1713; C1752; C1893; C9113; J0171; J0690; J0696; J0885; J1100; J1165; J1200; J1642; J1815; J2020; J2060; J2270; J2370; J2405; J2543; J2704; J2710; J3010; J3370; J3490; J7030; J7040; J7050; J7121; J7620; J7626; Q0163